=== PATIENT | male | born 1965 | race Caucasian/White ===

== ENCOUNTER 2025-04-21 09:12 | Emergency (ER) | payer OTHER, SELFPAY ==
[2025-04-21 09:20] VITALS: BP 110/69; PULSE 72; RESP 16; TEMP 36.9; O2SAT 98
--- OUTSIDE RECORDS SUMMARY | 2025-04-21 09:28 | XMS_ITS | Continuity of Care Document ---
Author Organization [facility] Sonya SMITH (Adult Med) Address [address] [place] [address] Care Team Providers Care Pipe Bender Name Role Phone DARLIN DEJESUS Sleep Medicine ZARINA MCHUGH Neurologist ANTOINETTE SANTOS Primary Care Provider Unavailabl e Assessment No assessment recorded. Plan of Treatment Reminders Order Date Submit Date Provider Last Modified By Organization Details Last Modified Time Details Appointments ANY 15 2024 03:15P M Zarina Carrillo MD Not available Not available Not available ANY 2025 01:00P OMID ROPER Not available Not available Not available ANY 15 2025 03:45P M Amos Jones MD Not available Not available Not available ANY 15 2025 03:00P OMID ROPER Not available Not available Not available Lab None recorded. Referral None recorded. Procedures None recorded. Surgeries None recorded. Imaging None recorded. Medication Orders ciproflox acin 0.3 %-dexamet hasone 0.1 % ear drops,rajiv pension 2024 025 [facility] [id number], [address], [place], [id number], 03/24/2025 16:32:33 Patient TargetsNo targets recorded. Patient InstructionsNo instructions recorded. Reason for Referral None Reported. Results Created Date Observation Date Name Description Value Unit Range Abnormal Flag Note LastModifiedBy Organization Detail LastModifiedTime 04/17/2004/17/2025 elect roclotus diogr am No observ ation record ed. FELICIA In-Office Order Internal Use Only DO Not Attach Compendium DO Not Attach Compendium, Do Not Delete/merge, [id number] 04/20/2025 08:50:48 04/17/20 elect rocar diogr am No observ ation record ed. [email or web address] Not Available 2024 13:45:17 Result Notes None recorded. Problems Name Problem SNOMED Code Status Onset Date Resolution Date Notes Provider Name and Address Organization Details Recorded Time Upper respirat ory infectio n 45467366 Completed 07/25/2016 James Muniz MD Attn: Accounting, [address] [place], [address], [facility] 7 17:30:21 Hemorrho ids 54935107 Completed 09/24/2018 James Muniz MD Attn: Accounting, [address] [place], [address], [facility] - [facility] 9 15:11:06 Morbid obesity 360561675 Completed 07/25/2016 James Muniz MD Attn: Accounting, [address] [place], [address], [facility] - [facility] 3 16:21:11 Fatigue 62704171 Completed 09/24/2018 James Muniz MD Attn: Accounting, [address] [place], [address], [place] [facility] 9 15:10:58 Sleep apnea 61413972 Completed 09/24/2018 James Muniz MD Attn: Accounting, [address] [place], [address], [place] [facility] 9 15:11:01 Tobacco user 686141385 Completed 07/25/2016 James Muniz MD Attn: Accounting, [address] [place], [address], [place] 03/28/201 7 17:30:18 [facility]ia l hyperten tiera 59332481 Active Gala Lockhart MA null, [place] - [facility] 0 14:16:45 Overweig ht 471768120 Completed 201609/24/2018 James Muniz MD Attn: Accounting, [address] [place], [address], [place] [facility] 9 15:10:55 Tobacco dependen ce syndrome 87303542 Active 2016 Gala Lockhart [place], [place] [facility] 0 14:16:45 Posterio r rhinorrh ea 48310291 Active 2017 Gala Lockhart [place], [place] [facility] 0 14:16:45 Body mass index 30+ - obesity 370748665 Active 2017 Gala Lockhart [place], [place] [facility] 0 14:16:45 Sleep pattern disturba nce 63340407 Completed 201809/24/2018 James Muniz MD Attn: Accounting, [address] [place], [address], [place] [facility] 9 15:10:39 Obstruct sydni sleep apnea syndrome 86637735 Active 2018 Gala Lockhart [place], [place] [facility] 0 14:16:45 Hypercho lesterol emia 30713994 Active 2018 Gala Lockhart [place] [facility] 0 14:16:45 Gastroes ophageal reflux disease without esophagi tis 581056182 Active 2019 James Muniz MD Attn: Accounting, [address] [place], [address], [place] [facility] 0 09:23:30 Seasonal allergic rhinitis 317704977 Active 2019 James Muniz MD Attn: Accounting, [address] [place], [address], [place] [facility] 0 09:44:24 Anal warts 411614408 Active 2021 James Muniz MD Attn: Accounting, [address] [place], [place], [address] [place] [address], [facility] - [facility] 2 16:55:40 Obesity 093652917 Active 2021 James Muniz MD Attn: Accounting, [address] [place], [place], [address] [place] [address], [facility] - [facility] 2 14:18:41 Pure hypercho lesterol emia 353826260 Active 2021 James Muniz MD Attn: Accounting, [address] [place], [place], [address] [place] [address], [facility] 2 10:07:02 Alcohol dependen ce 62477466 Active 2021 James Muniz MD Attn: Accounting, [address] [place], [place], [address] [place] [address], [facility] 2 10:31:31 Right hemipare sis 697839771 Active 2021 Jamse Muniz MD Attn: Accounting, [address] [place], [place], [address] [place] [address], [facility] - [facility] 2 10:34:51 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 736889609 Active 2021 James Muniz MD Attn: Accounting, [address] [place], [place], [address] [place] [address], [place] [facility] 2 10:35:04 Osteoart hritis of right hip joint 01819668940 9107 Active 2022 James Muniz MD Attn: Accounting, [address] [place], [place], [address] [place] [address], [place] [facility] 3 16:04:14 Paresis of right lower limb 21123049762 452021 Active 2022 James Muniz MD Attn: Accounting, [address] [facility], [place], [address], [place] [facility] 3 16:13:30 Morbid obesity 729423030 Active 2022 James Muniz MD Attn: Accounting, [address] [facility], [place], [address], [place] [facility] 3 16:21:11 Sinusiti s 21893310 Active 2024 OMID RAYA Attn: Accounting, [address] [facility], [place], [address], [place] [facility] 5 16:55:03 Problem Notes None recorded. Medical Equipment None Reported. Allergies Allergen ID Allergen Name Allergen Category Reaction Reaction Severity Criticality Documentation Date Start Date Code Code System Note Provider Name and Address Organization Details Recorded Time 156237 No known allergy (situatio n) Not available Not available Not available Not available 06/21/2023 [id number] SNOMED Avni Muniz MD Attn: Accountin g,[address] [facility], [place], [address], [place] [facility] 4 17:05:04 No known drug allergies Medications Name Sig Start Date Stop Date Status Note LastModified by Organization Details LastModified Time amoxicill in 500 mg capsule TAKE ONE CAPSULE BY MOUTH EVERY 8 HOURS UNTIL GONE 08/16 completed Not Available Not Available Not Available atorvasta tin 40 mg tablet TAKE 1 TABLET BY MOUTH EVERY DAY IN THE EVENING 02/03 completed Not Available Not Available Not Available atorvasta tin 80 mg tablet TAKE 1 TABLET BY MOUTH EVERY DAY AT DINNER active Not Available Not Available No t Available clonidine HCl 0.1 mg tablet Take 1 tablet as needed by oral route, for as needed for systolic BP over 160 or diastoli c BP over 100. 2024 active Not Available Not Available Not Avai lable naproxen 375 mg tablet TAKE 1 TABLET BY MOUTH EVERY DAY WITH A MEAL 08/05 completed Not Available Not Available Not Available Anusol-HC 2.5 % rectal cream with applicato r Insert 1 applicat ion twice a day by rectal route. 2014 active Not Available Not Available Not Avai lable cetirizin e 10 mg tablet Take 1 tablet every day by oral route for 30 days. 04/17 completed Not Available Not Available Not Available lisinopri l 20 mg-hydroc hlorothia zide 12.5 mg tablet TAKE 1 TABLET BY MOUTH EVERY DAY IN THE MORNING 11/09 completed Not Available Not Available Not Available azithromy sandra 250 mg tablet TAKE 2 TABLETS (500 MG) BY ORAL ROUTE ONCE DAILY FOR 1 DAY THEN 1 TABLET (250 MG) BY ORAL ROUTE ONCE DAILY FOR 4 DAYS 09/24 completed Not Available Not Available Not Available aspirin 325 mg tablet Take 1 tablet every day by oral route for 30 days. 11/03 completed Not Available Not Available Not Available tizanidin e 4 mg tablet Take 1 tablet every day by oral route as needed. 08/05 completed Not Available Not Available Not Available metoprolo l succinate ER 50 mg tablet,ex tended release 24 hr TAKE 1 TABLET BY MOUTH EVERY DAY 05/03 completed Not Available Not Available Not Available hydrocodo ne 5 mg-acetam inophen 325 mg tablet TAKE 1 TABLET BY MOUTH EVERY 8 HOURS NEEDED FOR MODERATE TO SEVERE PAIN 08/05 completed Not Available Not Available Not Available lisinopri l 20 mg tablet TAKE 1 TABLET BY MOUTH EVERY DAY 12/17 completed increase d to 40 mg Not Available Not Available Not Available prednison e 20 mg tablet TAKE 1 TABLET BY MOUTH DAILY WITH MEALS X 5 DAYS 08/02 completed Not Available Not Available Not Available metoprolo l succinate ER 100 mg tablet,ex tended release 24 hr TAKE 1 TABLET BY MOUTH EVERY DAY active Not Available Not Available No t Available simethico ne 125 mg capsule Take 1 capsule every 6 hours by oral route as needed for 30 days, for gas pain. 04/17 completed not taking Not Available Not Available Not Available Debrox 6.5 % ear drops INSTILL 5 DROPS INTO AFFECTED EAR(S) BY OTIC ROUTE 2 TIMES PER DAY 01/28 completed Not Available Not Available Not Available metronida zole 500 mg tablet TAKE 1 TABLET BY MOUTH THREE TIMES DAILY 12/01 completed Not Available Not Available Not Available clopidogr el 75 mg tablet TAKE 1 TABLET BY MOUTH EVERY DAY 04/14 completed Not Available Not Available Not Available sulfameth oxazole 800 mg-trimet hoprim 160 mg tablet Take 1 tablet every 12 hours by oral route for 14 days. 03/20 completed Not Available Not Available Not Available aspirin 81 mg tablet,de layed release Take 1 tablet every day by oral route. 2021 active Not Available Not Available Not Avai lable doxycycli ne monohydra te 100 mg tablet Take 1 tablet twice a day by oral route for 10 days. 12/17 completed Not Available Not Available Not Available amoxicill in 500 mg tablet TAKE 1 TABLET BY MOUTH EVERY 8 HOURS UNTIL GONE 03/23 completed Not Available Not Available Not Available amoxicill in 875 mg tablet Take 1 tablet every 12 hours by oral route for 5 days. 01/20 completed Not Available Not Available Not Available famotidin e 20 mg tablet TAKE 1 TABLET BY MOUTH TWICE DAILY 08/05 completed Not Available Not Available Not Available Hydrocort isone (Rectal) 2.5 % cream APPLY TO THE AFFECTED AREA(S) BY TOPICAL ROUTE 2 TIMES PER DAY active Not Available Not Available No t Available benzonata te 100 mg capsule Take 1 capsule 3 times a day by oral route as needed for 10 days. 01/10 completed Not Available Not Available Not Available doxycycli ne monohydra te 100 mg capsule TAKE 1 CAPSULE BY MOUTH TWICE DAILY FOR 7 DAYS 06/20 completed Not Available Not Available Not Available ranitidin e 150 mg tablet Take 1 tablet twice a day by oral route. 07/30 completed contamin ated Not Available Not Available Not Available lisinopri l 10 mg tablet TAKE 1 TABLET BY MOUTH EVERY DAY 08/05 completed Not Available Not Available Not Available naproxen 500 mg tablet,de layed release 05/09 completed Not Available Not Available Not Available indometha sandra 50 mg capsule TAKE 1 CAPSULE BY MOUTH THREE TIMES DAILY FOR UP TO 7 DAYS NEEDED FOR MODERATE TO SEVERE PAIN 06/21 completed Not Available Not Available Not Available triamcino lone acetonide 0.025 % topical ointment APPLY A THIN LAYER TO THE AFFECTED AREA(S) BY TOPICAL ROUTE 2 TIMES PER DAY for 1-2 weeks 04/17 completed Not Available Not Available Not Available folic acid 1 mg tablet Take 1 tablet every day by oral route. 04/17 completed Not Available Not Available Not Available hydrocort isone 2.5 % topical cream active Not Available Not Available Not Available hydroxyzi ne HCl 25 mg tablet TAKE 1 TABLET BY MOUTH EVERY NIGHT AT BEDTIME FOR ITCHING 03/20 completed Not Available Not Available Not Available hydrochlo rothiazid e 25 mg tablet Take 1 tablet every day by oral route for 90 days. 2024 active Not Available Not Available Not Avai lable metoprolo l succinate ER 25 mg tablet,ex tended release 24 hr TAKE 1 TABLET BY MOUTH EVERY DAY 01/05 completed Not Available Not Available Not Available levofloxa sandra 500 mg tablet 06/26 completed Not Available Not Available Not Available levofloxa sandra 750 mg tablet TAKE 1 TABLET BY MOUTH DAILY FOR 10 DAYS 12/01 completed Not Available Not Available Not Available methylpre dnisolone 4 mg tablets in a dose pack FOLLOW PACKAGE DIRECTIO NS 09/24 completed Not Available Not Available Not Available albuterol sulfate HFA 90 mcg/actua tion aerosol inhaler Inhale 2 puffs every 6-8 hours by inhalati on route as needed for 30 days. 2024 active Not Available Not Available Not Avai lable lisinopri l 40 mg tablet TAKE 1 TABLET BY MOUTH EVERY DAY active Not Available Not Available No t Available cefdinir 300 mg capsule TAKE 2 CAPSULES BY MOUTH DAILY FOR 7 DAYS 02/24 completed Not Available Not Available Not Available fluticaso ne propionat e 50 mcg/actua tion nasal spray,arjiv pension SHAKE LIQUID AND USE 2 SPRAYS IN EACH NOSTRIL EVERY DAY NEEDED active Not Available Not Available No t Available loratadin e 10 mg tablet TAKE 1 TABLET BY MOUTH DAILY active Not Available Not Available No t Available naproxen 500 mg tablet TAKE 1 TABLET BY MOUTH TWICE DAILY FOR 10 DAYS 12/01 completed pt is not taking ( 4) Not Available Not Available Not Available amoxicill in 875 mg-potass ium clavulana te 125 mg tablet Take 1 tablet every 12 hours by oral route for 10 days. 03/03 completed Not Available Not Available Not Available nicotine 7 mg/24 hr daily transderm al patch Apply 1 patch every day by transder mal route. 07/30 completed Not Available Not Available Not Available Aspir-Tri n 325 mg tablet,de layed release Take 1 tablet every day by oral route. 06/13 completed OTC per the pt Not Available Not Available Not Available modafinil 100 mg tablet TAKE 1 TABLET BY MOUTH EVERY DAY 02/03 completed Per sleep provider Not Available Not Available Not Available cyclobenz aprine 5 mg tablet Take 1 tablet 3 times a day by oral route as needed for 15 days. 03/25 completed Not Available Not Available Not Available ciproflox acin 0.3 %-dexamet hasone 0.1 % ear drops,rajiv pension SHAKE LIQUID AND INSTILL 4 DROPS TO AFFECTED EAR TWICE DAILY FOR 7 DAYS active Not Available Not Available No t Available topiramat e 50 mg tablet Take 1 tablet twice a day by oral route. 01/28 completed Not Available Not Available Not Available Aspir-81 06/14 completed 1 daily OTC Not Available Not Available Not Available cetirizin e 09/24 completed OTC Not Available Not Available Not Available hydrochlo rothiazid e 12.5 mg tablet TAKE 1 TABLET BY MOUTH EVERY DAY IN THE MORNING 04/17 completed Increase d to 25 mg Not Available Not Available Not Available levocetir izine 5 mg tablet TAKE 1 TABLET BY MOUTH DAILY NEEDED. STOP LORATADI NE. 06/13 completed Not Available Not Available Not Available Neilmed Sinus Rinse Complete with packet Take 1 packet every day by nasal route as needed. 01/28 completed Not Available Not Available Not Available loratadin e 10 mg capsule Take by oral route. 06/26 completed Not Available Not Available Not Available Vitals Date Recorded Body height Body mass index (BMI) Body weight Heart rate Respiratory rate Body temperature Systolic And Diastolic Provider Name and Address Organization Details Last Updated DateTime 5 180.34 cm 39.8 kg/m2 457860. 34 g 61 /min 16 /min 97.2 [degF] 137/77 mm[Hg] Tri Guerra [place] - [facility] 16:23:00 Social History Question Answer Notes LastModified by Organizat ion Details LastModified Time Tobacco Smoking Status Current Some Day Smoker LAYTON Ayala null, [place] - [facility] 09/02/2020 15:01:22 Do You Have An Advance Directive? No Information not available 09/02/2020 Are You Blind Or Do You Have Difficulty Seeing? Yes Glasses Information not available 03/03/2025 What Is Your Level Of Caffeine Consumption? Moderate Information not available 09/02/2020 In The 14 Days Before Symptom Onset, Have You Had Close Contact With A Laboratory-confir med COVID-19 While That Case Was Ill? No Information not available 09/02/2020 In The 14 Days Before Symptom Onset, Have You Had Close Contact With A Person Who Is Under Investigation For COVID-19 While That Person Was Ill? No Information not available 09/02/2020 Have You Been To An Area Known To Be High Risk For COVID-19? No Information not available 09/02/2020 Are You Deaf Or Do You Have Serious Difficulty Hearing? No Some Information not available 03/03/2025 What Type Of Diet Are You Following? REGULAR Information not available 09/02/2020 Are There Any Guns Present In Your Home? No Information not available 09/02/2020 Marital Status Informatio n not available 08/31/2014 What Was The Date Of Your Most Recent Tobacco Screening? 04/17/2025 Information not available 04/17/2025 How Many Children Do You Have? 2 Information not available 09/25/2023 Do You Have Any Pets? Yes [email or web address] Information not available 02/24/2025 What Is Your Relationship Status? Information not available 09/02/2020 Do You Use Your Seat Belt Or Car Seat Routinely? Yes Information not available 09/02/2020 Do You Have Smoke And Carbon Monoxide Detectors In Your Home? Yes Information not available 09/02/2020 At What Age Did You Start Smoking Tobacco? 16 [email or web address] Information not available 01/03/2024 How Much Tobacco Do You Smoke? 0.25 PPD etodaroma Information not available 02/08/2023 Do You Use Sunscreen Routinely? No Information not available 09/02/2020 Has Tobacco Cessation Counseling Been Provided? Yes ssuthan Information not available 09/24/2018 On What Date Was Tobacco Cessation Counseling Provided? 04/17/2025 Information not available 04/17/2025 How Many Years Have You Smoked Tobacco? 30 Information not available 05/04/2014 Sex: Male Functional Status Question Answer Note LastModified by Organizat ion Details LastModified Time Do you use any illicit or recreational drugs? No Information not available 09/02/2020 Do you or have you ever used any other forms of tobacco or nicotine? No [email or web address] Information not available 11/30/2021 What is your level of alcohol consumption? None Information not available 08/31/2014 Do you or have you ever used smokeless tobacco? Never used smokeless tobacco Information not available 01/06/2020 Are you currently employed? Yes Information not available 09/02/2020 Are you able to care for yourself independently? 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 Never used electronic cigarettes Information not available 01/06/2020 What is your exercise level? Occasional Information not available 09/02/2020 Mental Status Question Answer Note LastModified by Organizat ion Details LastModified Time Do you feel stressed (tense, restless, nervous, or anxious, or unable to sleep at night)? [id number] at work Information not available 09/02/2020 Family History Relationship Description Onset Age of this Age Resolved Age Notes LastModified by Organization Details LastModified Time Mother Asthma Not available 12/22/2015 16:53:54 Mother Hypertensive disorder Not available 2015 16:53:54 Father Hypertensive disorder Not available 2015 16:53:54 Father Heart disease Not available 2015 16:53:54 Brother Hypertensive disorder Not available 2015 16:53:54 Notes:no new 02/08/23, 08/05/ 4, 09/25/23, 10/10/23, 10/16/23, 01/03/24, 01/21/24, 02/18/24, 04/14/24 Medical History Condition Response High Blood Pressure Y Asthma Y Allergies Y Immunizations Vaccine Type Date Status Note Provider Nam e and Address Organization Details Recorded Time SARS-COV-2 (COVID-19) vaccine, UNSPECIFIED 1 completed Not Available [facility] 05/28/2023 22:35:09 Influenza, split virus, quadrivalent, preservative 8 completed Not Available [facility] 05/17/2019 02:50:29 Influenza, split virus, quadrivalent, preservative 9 completed Not Available [facility] 05/17/2019 02:43:07 Influenza, split virus, quadrivalent, preservative 2 completed James Muniz MD Attn: Accounting[address] [place], [address], [facility] 04/17/2022 15:32:00 Tdap 4 completed [facility] 08/06/2023 17:05:13 Past Encounters Encounter ID Performer Location Encounter Start Date Encounter Closed Date Diagnosis/Indication Diagnosis SNOMED-CT Code Diagnosis ICD10 Code Diagnosis IMO Codes Diagnosis Note [id number] MD Sonya Lance (Adult Med) [address] [place] [address] 02/24/2025 15:54:48 02/25/2025 13:30:58 Acute left otitis media 105428112 H66.92 [id number] follow up in a month [id number] MD Sonya Eddy (Adult Med) [address] [place] [address] 03/03/2025 15:55:32 03/05/2025 12:06:34 Essential hypertension 91778316 I10 -Controlle d-BP today in clinic: 139/84mmHg (Goal <130/80)-C ontinue current therapy: Metoprolol ER 100mg daily, Lisinopril 40mg daily, hydrochlor othiazide 12.5mg daily-Kenney es chest pain, shortness of breath, headaches, blurred vision, or heart palpitatio ns-Patient to call if BP remains >140/90, or if BP drops <110/70mmH g.-Trend renal function-R ecommended DASH diet-Discu ssed importance of regular exercise and/or physical activity inthe control of blood pressure.- Discussed low sodium diet w/ <2 g daily, avoidance of caffeine, appropriat e sleep hygiene and quality with >6 hours of uninterrup carmen sleep.- Plan to follow up in 6 month Low back pain 739676928 M54.50 935598 -Denies having any acute trauma-Den ies any loss of control of bowels or bladder. Denies any numbness or tingling.- spasticity noted on exam on right lower back-Spina l x ray declined-P atient agreeable to trial of cyclobenza carmen 5mg TID PRN and lidocaine patches PRN, and diclofenac gel PRN-Patien t to follow up in clinic if symptoms worsen or do not improve-ER precaution s advised-Ca re instructio ns provided. Intracranial aneurysm 12 4753911 I67.1 [id number] -Carotid CTA (01/03/24): no carotid or vertebral stenosis-I ntracrania l CTA (01/03/24): No large vessel occlusion. 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 New referral placed.-ER precaution s advised [id number] MD Sonya Lance (Adult Med) [address] [place] [address] 03/24/2025 16:01:12 03/25/2025 12:09:52 Otitis externa 1932020 H60.8X2 [id number] keep ear dry Health Concerns Section Related Observation LastModified by Organization Detai ls LastModified Time None Recorded Concern Status LastModified by Organization Details LastModified Time None Recorded Payers Encounter Date Sequence Insurance Name Policy Number Policy Johns Covered Member ID Johns Member ID Guarantor Name 03/24/2025 2 *SELF PAY* Sirena Valenzuela 03/24/2025 1 [facility] EXCH[facility] PLAN [place] [id number] Ramon Valenzuela [id number] Ramon Valenzuela Notes Date Note Type Note Provider Name and Address Organization Details Recorded Time 03/24/2025 text/html ROS as noted in the HPI Pt complaining of blockage of his left ear with drainage. He has been on antibiotics without relief Zarina Carrillo MD Attn: Accounting[address] [facility], [place], [address], [facility] 03/24/2025 16:32:46
--- OUTSIDE RECORDS SUMMARY | 2025-04-21 09:28 | XMS_ITS | Continuity of Care Document ---
Author Organization [facility] ([facility]) Address [address] [place] [address] Care Team Providers Care Shield Operator Name Role Phone DARLIN DEJESUS Sleep Medicine [...] None recorded. Imaging None recorded. Medication Orders amoxicill in 875 mg-potass ium clavulana te 125 mg tablet 2024 025 [id number], [address] [place], [place], [phone], 03/03/2025 16:25:34 fluticaso ne propionat e 50 mcg/actua tion nasal spray,rajiv pension 2024 025 [id number], [address] [place], [place], [phone], 02/24/2025 16:13:57 Patient TargetsNo targets recorded. Patient InstructionsNo instructions recorded. Reason for Referral None Reported. Results Created Date Observation Date Name Description Value Unit Range Abnormal Flag Note LastModifiedBy Organization Detail LastModifiedTime 04/17/2004/17/2025 elect rocar diogr am No observ ation record ed. FELICIA In-Office Order Internal Use Only DO Not Attach Compendium DO Not Attach Compendium, Do Not Delete/merge, [id number] 04/20/2025 08:50:48 04/17/20 elect rocar diogr am No observ ation record ed. [email or web address] Not Available 2024 13:45:17 Result Notes None recorded. Problems Name Problem SNOMED Code Status Onset Date Resolution Date Notes Provider Name and Address Organization Details Recorded Time Upper respirat ory infectio n 42076818 Completed 07/25/2016 James Muniz MD Attn: Accounting, [address] [place], [address], [facility] - [facility] 7 17:30:21 Hemorrho ids 47727488 Completed 09/24/2018 James Muniz MD Attn: Accounting, [address] [place], [address], [facility] - [facility] 9 15:11:06 Morbid obesity 323555085 Completed 07/25/2016 James Muniz MD Attn: Accounting, [address] [place], [address], [place] - [facility] 3 16:21:11 Fatigue 50958765 Completed 09/24/2018 James Muniz MD Attn: Accounting, [address] [place], [address], [facility] - [facility] 9 15:10:58 Sleep apnea 52528231 Completed 09/24/2018 James Muniz MD Attn: Accounting, [address] [place], [address], [place] - [facility] 9 15:11:01 Tobacco user 443390589 Completed 07/25/2016 James Muniz MD Attn: Accounting, [address] [place], [address], [place] [facility] 7 17:30:18 [facility] l hyperten tiera 39872531 Active Gala Lockhart [place] null, [place] [facility] 0 14:16:45 [place] ht 544128077 Completed 201609/24/2018 James Muniz MD Attn: Accounting, [address] [place], [address], [place] [facility] 9 15:10:55 Tobacco dependen ce syndrome 80499750 Active 2016 Gala Lockhart [place], [place] [facility] 0 14:16:45 Posterio r rhinorrh ea 54449666 Active 2017 Gala Lockhart [place] [facility] 0 14:16:45 Body mass index 30+ - obesity 242720662 Active 2017 Gala Lockhart [place] [facility] 0 14:16:45 Sleep pattern disturba nce 73746885 Completed 201809/24/2018 James Muniz MD Attn: Accounting, [address] [place], [address], [place] [facility] 9 15:10:39 Obstruct sydni sleep apnea syndrome 07210815 Active 2018 Gala Lockhart [place] [facility] 0 14:16:45 Hypercho lesterol emia 71196739 Active 2018 Gala Lockhart [place] [facility] 0 14:16:45 Gastroes ophageal reflux disease without esophagi tis 833553704 Active 2019 James Muniz MD Attn: Accounting, [address] [place], [address], [place] [facility] 0 09:23:30 Seasonal allergic rhinitis 827787499 Active 2019 James Muniz MD Attn: Accounting, [address] [place], [place], [address] [place] [address], [place] [facility] 0 09:44:24 Anal warts 497626961 Active 2021 James Muniz MD Attn: Accounting, [address] [place], [place], [address] [place] [address], [place] [facility] 2 16:55:40 Obesity 236603970 Active 2021 James Muniz MD Attn: Accounting, [address] [place], [place], [address] [place] [address], [place] [facility] 2 14:18:41 Pure hypercho lesterol emia 411471136 Active 2021 James Muniz MD Attn: Accounting, [address] [place], [place], [address] [place] [address], [place] [facility] 2 10:07:02 Alcohol dependen ce 76873734 Active 2021 James Muniz MD Attn: Accounting, [address] [place], [place], [address] [place] [address], [place] [facility] 2 10:31:31 Right hemipare sis 471581379 Active 2021 James Muniz MD Attn: Accounting, [address] [place], [place], [address] [place] [address], [place] [facility] 2 10:34:51 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 447267578 Active 2021 James Muniz MD Attn: Accounting, [address] [place], [place], [address] [place] [address], [place] [facility] 2 10:35:04 Osteoart hritis of right hip joint 57752669730 9107 Active 2022 James Muniz MD Attn: Accounting, [address] [facility], [place], [address], [place] [facility] 3 16:04:14 Paresis of right lower limb 84017063176 175110 Active 2022 James Muniz MD Attn: Accounting, [address] [facility], [place], [address], [place] [facility] 3 16:13:30 Morbid obesity 999587452 Active 2022 James Muniz MD Attn: Accounting, [address] [facility], [place], [address], [place] [facility] 3 16:21:11 Sinusiti s 84998959 Active 2024 OMID RAYA Attn: Accounting, [address] [place], [address], [place] - [facility] 5 16:55:03 Problem Notes None recorded. Medical Equipment None Reported. Allergies Allergen ID Allergen Name Allergen Category Reaction Reaction Severity Criticality Documentation Date Start Date Code Code System Note Provider Name and Address Organization Details Recorded Time 655407 No known allergy (situatio n) Not available Not available Not available Not available 06/21/2023 23279 6003 SNOMED Avni Muniz MD Attn: Accountin g,[address] [place], [address], [place] - [facility] 4 17:05:04 No [...] ne propionat e 50 mcg/actua tion nasal spray,rajiv pension SHAKE LIQUID AND USE 2 SPRAYS [...] height Body mass index (BMI) Body weight Respiratory rate Body temperature Heart rate Systolic And Diastolic Provider Name and Address Organization Details Last Updated DateTime 5 180.34 cm 39.7 kg/m2 957536. 31 g 16 /min 97.6 [degF] 61 /min 150/85 mm[Hg] Santiago Romero [facility] 5 16:02:53 Social History Question Answer Notes LastModified by Lobsterat ion Details LastModified Time Tobacco Smoking Status Current Some Day Smoker LAYTON Ayala, [facility] 09/02/2020 15:01:22 Do You Have An Advance [...] not available 09/02/2020 What is your occupation? [employer] Information not available 01/21/2024 Do you or have you ever used e-cigarettes or vape? Never used electronic cigarettes Information not available 01/06/2020 What is your exercise level? Occasional Information not available 09/02/2020 Mental Status Question Answer Note LastModified by Organizat ion Details LastModified Time Do you feel stressed (tense, restless, nervous, or anxious, or unable to sleep at night)? [id number] at work Information not available 09/02/2020 Family [...] (COVID-19) vaccine, UNSPECIFIED 1 completed Not Available [facility] 05/28/2023 22:35:09 Influenza, split virus, quadrivalent, preservative 8 completed Not Available [facility] 05/17/2019 02:50:29 Influenza, split virus, quadrivalent, preservative 9 completed Not Available [facility] 05/17/2019 02:43:07 Influenza, split virus, quadrivalent, preservative 2 completed James Muniz MD Attn: Accounting,[address] [place], [address], [facility] 04/17/2022 15:32:00 Tdap 4 completed [facility] [place] 08/06/2023 17:05:13 Past Encounters Encounter ID Performer Location Encounter Start Date Encounter Closed Date Diagnosis/Indication Diagnosis SNOMED-CT Code Diagnosis ICD10 Code Diagnosis IMO Codes Diagnosis Note [id number] Zarina Carrillo MD [facility] (Adult Med) [address] [place] [address] 02/24/2025 15:54:48 02/25/2025 13:30:58 Acute left otitis media 413093058 H66.92 [id number] follow up in a month Health Concerns Section Related Observation LastModified by Organization Detai ls LastModified Time None Recorded Concern Status LastModified by Organization Details LastModified Time None Recorded Payers Encounter Date Sequence Insurance Name Policy Number Policy Johns Covered Member ID Johns Member ID Guarantor Name 02/24/2025 2 *SELF PAY* Sirena Valenzuela 02/24/2025 1 [facility] [place] ILONEX Ramon Valenzuela [id number] Ramon Valenzuela Notes Date Note Type Note Provider Name and Address Organization Details Recorded Time 02/24/2025 text/html ROS as noted in the HPI Pt complaining of blockage of his left ear for the last month. He has been treated with antibiotics without relief. He has nasal congestion as well. Zarina Carrillo MD Attn: Accounting[address] [place], [address], [facility] - [facility] 02/24/2025 16:14:04
--- OUTSIDE RECORDS SUMMARY | 2025-04-21 09:29 | XMS_ITS | Encounter Summary ---
Author Organization [facility] Address [address] [place] [address] Care Team Providers Care Sterilisation Technician Name Role Phone Bernadine Anton Primary Care Provider [phone] Reason for Referral * Consultation (Routine) - Closed Specialty Diagnoses / Procedures Referred By Contac t Referred To Contact Neurological Surgery Diagnoses Cerebral aneurysm, nonruptured (HCC) Unknown, Provider [facility] - Neurosurgery [address] [place] [address] Phone: tel: fax: Referral ID Status Reason Start Date Expiration Date V isits Requested Visits Authorized [id number] Closed Specialty Services Required 02/25/2024 02/24/2025 1 1 Encounter Details Date Type Department Care Team (Late st Contact Info) Description 02/25/2024 Transcribe Orders [facility] - Centralized Scheduling [address] [place] [phone] Bernadine Anton [address] [address] Cerebral aneurysm, nonruptured Social History Tobacco Use Types Packs/Day Years Used Date Smoking Tobacco: Never Assessed Sex and Gender Information Value Date Recorded Sex Assigned at Not on file Legal Sex Male 7:52 AM CDT Gender Identity Not on file Sexual Orientation Not on file documented as of this encounter Plan of Treatment Scheduled Referrals Name Type Priority Associated Diagnoses Order Schedule AMB REFERRAL TO NEUROSURGERY Outpatient Referral Routine Cerebral aneurysm, nonruptured 1 Occurrences starting 02/25/2024 until 02/24/2025 documented as of this encounter Visit Diagnoses Diagnosis Cerebral aneurysm, nonruptured (HCC)- Primary Cerebral aneurysm, nonruptured documented in this encounter Care Teams Sterilisation Technician Relationship Specialty Start Date End Date AntonLuis EBernadine 2 [facility] [address] [phone] PCP - General 02/26/24 documented as of this encounter
--- OUTSIDE RECORDS SUMMARY | 2025-04-21 09:29 | XMS_ITS | Clinical Summary ---
Author Organization [facility] Address [address] [place] [address] Phone Care Team Providers Care Director [facility] Name Role Phone ErinRamon DPM Unavailable [phone] Liz Landaverde APRN, COW TESTER Unavailable + [phone] Darío Bangura MD Unavailable [phone] Bernadine Anton APRN, M[employer]ITIONS HANDLER Primary Care Provider Allergies No known active allergies Medications metoprolol Succinate (TOPROL-XL) 100 MG TABLET SR 24 HR Take 100 mg by mouth daily. 2 Active atorvastatin (LIPITOR) 80 MG Tablet Take 80 mg by mouth daily. 2 Active aspirin 81 MG Chewable Tablet Take 81 mg by mouth daily. Active albuterol 108 (90 Base) MCG/ACT Aerosol Solution take 2 Puffs by inhalation every 6 hours as needed for Wheezing. 4 Active fluticasone (FLONASE) 50 MCG/ACT Suspension 1-2 Sprays by Nasal route daily. Uses in both nostrils 4 Active hydroCHLOROthia zide 12.5 MG Tablet Take 12.5 mg by mouth every morning. 5 Active lisinopril (PRINIVIL, ZESTRIL) 40 MG Tablet Take 40 mg by mouth daily. 5 Active loratadine (CLARITIN) 10 MG Tablet Take 1 Tablet by mouth daily. Active ondansetron (ZOFRAN-ODT) 4 MG TABLET DISPERSIBLE Take 1 Tablet by mouth every 6 hours as needed for Nausea - 1st line. 10 Tablet 5 Active polyethylene glycol (GLYCOLAX, MIRALAX) 17 g PackIndications :Constipation Take 1 Packet by mouth 2 times daily as needed for Constipation - 1st line. Dissolve in 4-8 oz of liquid. Indications: Constipation 90 Packet Active metroNIDAZOLE (FLAGYL) 500 MG Tablet Take 1 Tablet by mouth 3 times daily. 30 Tablet 5 Active Active Problems Problem Noted Date Diagnosed Date Acute diverticulitis 08/06/2024 History of CVA (cerebrovascular accident) 2024 History of cerebral aneurysm 08/06/2024 History of seizures 08/06/2024 Tobacco dependence 08/06/2024 Ischemic cerebrovascular accident (CVA) 01/23/20 22 Sleep deprivation 01/31/2019 Dizziness 01/31/2019 Drug allergy 01/31/2019 TIA (transient ischemic attack) 01/31/2019 Seizure disorder 01/31/2019 Hypertension 01/30/2019 Body mass index (bmi) 38.0-38.9, adult 9 Equinus contracture of left ankle 11/21/2016 Other enthesopathy of left foot 11/21/2016 Plantar fasciitis, left 11/21/2016 Encounters Date Type Department Care Team Description 04/07/2025 1:17 PM [facility] - 04/07/2025 6:03 PM [facility] Emergency [facility] Emergency [address] [place] [address] Kathrine Donald MD Dizziness Discharge Disposition: Discharged to home or Selfcare 04/07/2025 Travel from Last 3 Months Immunizations Immunization Administration Dates Next Due Influenza Vaccine, Quadrivalent, PF 01/31/2019() Family History Medical History Relation Name Comments No Known Problems Brother Heart Attack Father Hypertension Mother Obstructive Sleep Apnea Mother Multiple Sclerosis Sister 1 No Known Problems Sister 2 No Known Problems Sister 3 No Known Problems Son 1 No Known Problems Son 2 Relation Name Status Comments Brother Alive Father Mother Alive Sister 1 Alive Sister 2 Alive Sister 3 Alive Son 1 Alive Son 2 Alive Social History Tobacco Use Types Packs/Day Years Used Date Smoking Tobacco: Every Day Cigarettes 1 43 Started: 1982 Smokeless Tobacco: Never Alcohol Use Standard Drinks/Week Comments Yes 0 (1 standard drink = 0.6 oz pure alcohol) Used to be heavy drinker, now drinks on the weekends [facility] Utilities Answer Date Recorded In the past 12 months has th e electric, gas, oil, or water company threatened to shut off services in your home? No 08/06/2024 Hunger Vital Sign Answer Date Recorded Within the past 12 months, y ou worried that your food would run out before you got the money to buy more. Never true 08/07/19 25 Within the past 12 months, t he food you bought just didn't last and you didn't have money to get more. Never true 08/06/2024 PRAPARE - Transportation Answer Date Re corded In the past 12 months, has l ack of transportation kept you from medical appointments or from getting medications? No 12/2024 In the past 12 months, has l ack of transportation kept you from meetings, work, or from getting things needed for daily living? No 08/06/2024 Housing Stability Vital Sign Answer Ulysses e Recorded In the last 12 months, was t here a time when you were not able to pay the mortgage or rent on time? No 08/06/2024 In the past 12 months, how m any times have you moved where you were living? 0 08/06/2024 At any time in the past 12 m [facility], were you homeless or living in a skilled nursing (including now)? No 08/06/2024 Sexually Active Control Partners Comments Yes Female Sex and Gender Information Value Date Recorded Sex Assigned at Not on file Legal Sex Male 12:32 AM CDT Gender Identity Not on file Sexual Orientation Not on file Last Filed Vital Signs Vital Sign Reading Time Taken Comments Blood Pressure 159/82 04/07/2025 5:58 PM [facility] Pulse 59 04/07/2025 5:58 PM [facility] Temperature 36.3 C (97.3 F) 04/07/2025 12:47 PM [facility] Respiratory Rate 12 04/07/2025 6:00 PM [facility] Oxygen Saturation 96% 04/07/2025 5:58 PM [facility] Inhaled Oxygen Concentration - - Weight 129.5 kg (285 lb 7.9 oz) 025 12:47 PM [facility] Height 182.9 cm (6') 04/07/2025 12:47 PM [facility] Body Mass Index 38.72 04/07/2025 12:47 PM [facility] Plan of Treatment Health Maintenance Due Date Last Done Comments Hepatitis C Virus (HCV) Screening 1965 Hepatitis B Immunization (1 of 3 - 19+ 3-dose series) 09/10/1986 Pneumococcal Immunization (5 0+ years) (1 of 2 - PCV) 09/10/1986 Cologuard 09/10/2012 Colonoscopy 09/10/2012 Lung Cancer Screening 09/10/2017 Zoster Immunization (1 of 2) 09/10/2017 Colorectal Cancer Screening 01/24/2023 Immunochemical Fecal Occult Blood 01/24/2023 01/24/2022 Influenza Immunization (#1) 12/29/202403/30, 02/04/2019, 03/12/2018 SARS-COV-2 Immunization (2 - season) 2024 09/03/2020 Respiratory Syncytial Virus (RSV) Immunization (Adult) (1 - 1-dose 75+ series) 09/10/2042 PSA Discussion Completed 11/27/2022 DTaP/Tdap/Td Immunization Discontinued 08/06/2023 TdaP Immunization Completed 08/06/2023 Human Papillomavirus (HPV) Immunization (No Doses Required) Completed Meningococcal Immunization (ACWY) Aged Out No longer eligible based on patient's age to complete this topic Rotavirus Immunization Aged Out No lo nger eligible based on patient's age to complete this topic Procedures Procedure Name Priority Date/Time Associated Diagnosis Comments CT HEAD OR BRAIN WO CONTRAST Stat with Interpretation 04/07/2025 2:55 PM [facility] URINALYSIS REFLEX IF INDICATED BY ABNORMAL RESULTS STAT 04/07/2025 1:29 PM [facility] GOLD TOP TUBE STAT 04/07/2025 12:58 PM [facility] BLUE TOP TUBE STAT 04/07/2025 12:58 PM [facility] CBC WITH AUTO DIFFERENTIAL STAT 04/07/2025 12:58 PM [facility] EXTRA TUBES STAT 04/07/2025 12:58 PM [facility] TROPONIN I, HIGH SENSITIVITY (HSTRP) STAT 04/07/2025 12:58 PM [facility] CMP (COMPREHENSIVE METABOLIC PANEL) STAT 04/07/2025 12:58 PM [facility] COMPLETE BLOOD COUNT (CBC) WITH DIFF STAT 04/07/2025 12:58 PM [facility] EKG 12 LEAD STAT 04/07/2025 12:51 PM [facility] EKG SCAN 04/07/2025 12:00 AM [facility] PSA SCREEN 11/27/2022 12:00 AM CDT STOOL, OCCULT BLOOD, DIAGNOSTIC, VIA GUAIAC Routine 01/24/2022 8:05 AM CDT from Last 3 Months or Most Recently Relevant to Health Maintenance Results * CT HEAD OR BRAIN WO CONTRAST (04/07/2025 2:55 PM [facility]) Anatomical Region Laterality Modality Head N/A Computed Tomogra phy 04/07/2025 2:55 PM [facility] Impressions 04/07/2025 3:05 PM [facility] IMPRESSION: 1. No acute intracranial abnormality. Narrative 04/07/2025 3:05 PM [facility] DICTATING PHYSICIAN: Stevie Bahena M.D. - [facility] EXAM: CT HEAD OR BRAIN WO CONTRAST 04/07/2025 2:55 PM HISTORY: Dizziness, history of hypertension. COMPARISON: January 10, 2024 TECHNIQUE: Radiation dose reduction techniques were employed. CTDIvol: 59.4 mGy. DLP: 1274 mGy-cm. FINDINGS: Brain: Hemorrhage: None. Mass: None, although small lesions may not be seen due to lack of IV contrast. Ischemia: No CT evidence of acute ischemia, although MRI is more sensitive and specific, particularly in the acute setting. Garcia & White Matter: Unremarkable. Ventricles & Extraaxial Spaces: Unremarkable Vessels: Few calcifications in the parasellar carotid arteries. Paranasal Sinuses & Mastoids: Well-aerated, no fluid. Calvarium & Skull Base: Unremarkable. No fracture. Orbits: Visualized portions unremarkable Scalp & Soft Tissues: Unremarkable. Procedure Note Stevie Bahena MD - 04/07/2025 DICTATING PHYSICIAN: Stevie Bahena M.D. - [facility] EXAM: CT HEAD OR BRAIN WO CONTRAST 04/07/2025 2:55 PM HISTORY: Dizziness, history of hypertension. COMPARISON: January 10, 2024 TECHNIQUE: Radiation dose reduction techniques were employed. CTDIvol:59.4 mGy. DLP: 1274 mGy-cm. FINDINGS: Brain: Hemorrhage: None. Mass: None, although small lesions may not be seen due to lack of IVcontrast. Ischemia: No CT evidence of acute ischemia, although MRI is moresensitive and specific, particularly in the acute setting. Garcia & White Matter: Unremarkable. Ventricles & Extraaxial Spaces: Unremarkable Vessels: Few calcifications in the parasellar carotid arteries. Paranasal Sinuses & Mastoids: Well-aerated, no fluid. Calvarium & Skull Base: Unremarkable. No fracture. Orbits: Visualized portions unremarkable Scalp & Soft Tissues: Unremarkable. IMPRESSION: 1. No acute intracranial abnormality. Kathrine Donald MD IMG CT ORDERABLES Final Resul t * (ABNORMAL) URINALYSIS REFLEX IF INDICATED BY ABNORMAL RESULTS (04/07/2025 1:29 PM [facility]) SPECIFIC GRAVITY 1.005 1.003 - 1.030 04/07/2025 2:08 PM [facility] URINE PH 7.0 5.0 - 9.0 04/07/2025 2:08 PM [facility] [employer] WBC ESTERASE Negative Negative 04/07/2025 2:08 PM [facility] [employer] NITRITE Negative Negative 04/07/2025 2:08 PM [facility] [facility] PROTEIN, RANDOM URINE Negative Negative 04/07/2025 2:08 PM [facility] [employer] URINE GLUCOSE, QUAL Negative Negative 04/07/2025 2:08 PM [facility] [employer] URINE KETONES Negative Negative 04/07/2025 2:08 PM [facility] UROBILINOGEN Normal Normal mg/dL 04/07/2025 2:08 PM [facility] URINE BLOOD 25 /uL(A) Negative kandace/ul 04/07/2025 2:08 PM [facility] URINALYSIS COLOR Yellow 04/07/20 2:08 PM [facility] URINALYSIS CLARITY Clear 04/07/2025 2:08 PM [facility] WBC (Urine) Negative Negative, 0-5 /hpf 04/07/2025 2:08 PM [facility] URINE RBC'S 0-2 Negative, 0-2 /hpf 04/07/2025 2:08 PM [facility] EPITHELIAL CELLS Negative /lpf 04/07/20 2:08 PM [facility] [employer] BACTERIA, URINE Negative Negative /hpf 04/07/2025 2:08 PM [facility] Urine URINE SPECIMEN OBTAINED BY CLEAN CATCH PROCEDURE / Unknown Non-Phlebotomy Collection / Unknown 04/07/2025 1:29 PM [facility] 04/07/2025 1:33 PM [facility] Kathrine Donald MD URINE ORDERABLES Final Result [facility] [address] [place] [address] * TROPONIN I, HIGH SENSITIVITY (HSTRP) (04/07/2025 12:58 PM [facility]) TROPONIN I, HIGH SENSITIVITY- STILL <2.7 <=35.0 ng/L 04/07/2025 1:36 PM [facility] Comment: High-sensitivity troponin I results are reported in ng/L making the result appear to be 1,000 times higher than the contemporary troponin I value which is reported in ng/ml. Results from Still. Blood Venipuncture / Unknown 04/07/2025 12:58 PM [facility] 04/07/2025 1:10 PM [facility] us Kathrine Donald MD CHEMISTRY ORDERABLES Final Re sult Performing Organization Address City/[facility]/ZIP Co de Phone Number [facility] [address] [place] [address] * Gold Top Tube (04/07/2025 12:58 PM [facility]) Blood No Phlebotomy Charged / Unknown 04/07/2025 12:58 PM [facility] 04/07/2025 1:11 PM [facility] us Kathrine Donald MD CHEMISTRY ORDERABLES Final Re sult Performing Organization Address City/[facility]/ZIP Co de Phone Number [facility] [address] [place] [address] * Blue Top Tube (04/07/2025 12:58 PM [facility] [employer]) Blood No Phlebotomy Charged / Unknown 04/07/2025 12:58 PM [facility] 04/07/2025 1:11 PM [facility] us Kathrine Donald MD HEMATOLOGY ORDERABLES Final R esult Performing Organization Address City/[facility] Co de Phone Number [facility] [address] [place] [address] * (ABNORMAL) CBC with Auto Differential (04/07/2025 12:58 PM [facility]) WBC 8.29 4.00 - 12.00 10(3)/mcL 04/07/2025 1:14 PM [facility] RBC 4.25(L) 4.40 - 5.80 10(6)/mcL 04/07/2025 1:14 PM [facility] HEMOGLOBIN (HGB) 13.5 13.0 - 16.5 g/dL 04/07/2025 1:14 PM [facility] HEMATOCRIT (HCT) 38.6 38.0 - 50.0 % 04/07/2025 1:14 PM [facility] MCV 90.8 82.0 - 96.0 fL 04/07/2025 1:14 PM [facility] MCH 31.8 26.0 - 32.0 pg 04/07/2025 1:14 PM [facility] MCHC 35.0 31.0 - 36.0 g/dL 04/07/2025 1:14 PM [facility] PLATELET COUNT 269 140 - 440 10(3)/mcL 04/07/2025 1:14 PM [facility] RDW 13.3 11.8 - 15.5 % 04/07/2025 1:14 PM [facility] MPV 8.9 8.0 - 12.6 fL 04/07/2025 1:14 PM [facility] NEUTROPHILS 63.5 40.0 - 68.0 % 04/07/2025 1:14 PM [facility] LYMPHOCYTES 25.3 19.0 - 49.0 % 04/07/2025 1:14 PM [facility] MONOCYTES 9.0 3.0 - 13.0 % 04/07/2025 1:14 PM [facility] EOSINOPHILS 1.0 0.0 - 8.0 % 04/07/2025 1:14 PM [facility] BASOPHILS 0.8 0.0 - 1.0 % 04/07/2025 1:14 PM [facility] IMMATURE GRANULOCYTE 0.4 0.0 - 0.4 % 04/07/2025 1:14 PM [facility] ABSOLUTE NEUTROPHILS 5.26 1.40 - 5.30 10(3)/mcL 04/07/2025 1:14 PM [facility] ABSOLUTE LYMPHOCYTES 2.10 0.90 - 3.30 10(3)/mcL 04/07/2025 1:14 PM [facility] ABSOLUTE MONOCYTES 0.75 0.10 - 0.90 10(3)/mcL 04/07/2025 1:14 PM [facility] ABSOLUTE EOSINOPHIL 0.08 0.00 - 0.50 10(3)/mcL 04/07/2025 1:14 PM [facility] ABSOLUTE BASOPHILS 0.07 0.00 - 0.10 10(3)/mcL 04/07/2025 1:14 PM [facility] ABSOLUTE IMMATURE GRANULOCYTE 0.03 0.00 - 0.03 10 (3) mcL. 04/07/2025 1:14 PM [facility] NRBC PER 100 WBC 0 04/07/20 1:14 PM [facility] Blood Venipuncture / Unknown 04/07/2025 12:58 PM [facility] 04/07/2025 1:10 PM [facility] us Kathrine Donald MD HEMATOLOGY ORDERABLES Final R esult [facility] [address] [place] [address] * Comprehensive Metabolic Panel (Cmp) [id number] (04/07/2025 12:58 PM [facility]) SODIUM 137 136 - 145 mmol/L 04/07/2025 1:31 PM [facility] POTASSIUM 4.2 3.5 - 5.1 mmol/L 04/07/2025 1:31 PM [facility] CHLORIDE 103 98 - 107 mmol/L 04/07/2025 1:31 PM [facility] CO2, VENOUS 25 22 - 30 mmol/L 04/07/2025 1:31 PM [facility] ANION GAP 13.2 <18.0 mmol/L 04/07/2025 1:31 PM [facility] GLUCOSE 92 70 - 99 mg/dL 04/07/2025 1:31 PM [facility] BUN 12 8 - 26 mg/dL 04/07/2025 1:31 PM [facility] CREATININE, BLOOD 0.91 0.70 - 1.30 mg/dL 04/07/2025 1:31 PM [facility] BUN/CREATININE RATIO 13 12 - 20 ratio 04/07/2025 1:31 PM [facility] TOTAL PROTEIN 8.0 6.0 - 8.0 g/dL 04/07/2025 1:31 PM [facility] ALBUMIN 4.5 3.5 - 5.0 g/dL 04/07/2025 1:31 PM [facility] A/G RATIO 1.3 1.0 - 2.2 04/07/2025 1:31 PM [facility] CALCIUM 9.1 8.7 - 10.5 mg/dL 04/07/2025 1:31 PM [facility] T BILI 0.5 0.2 - 1.2 mg/dL 04/07/2025 1:31 PM [facility] SGOT (AST) 23 <43 U/L 04/07/2025 1:31 PM [facility] SGPT (ALT) 23 <56 U/L 04/07/2025 1:31 PM [facility] ALKALINE PHOSPHATASE 82 40 - 150 U/L 04/07/2025 1:31 PM [facility] GFR, ESTIMATED >60 >=60 04/07/2025 1:31 PM [facility] Comment: Creatinine Clearance is the preferred criteria for selecting drug dose adjustments in renally impaired patients. The GFR is provided as additional pertinent clinical information. GFR is reported in mL/min/1.73 sq m. Calculation based on the 2020 Chronic Kidney Disease Epidemiology Collaboration (CKD-EPI) equation refit without adjustment for race. GFR, EST. >60 >=60 025 1:31 PM [facility] Comment: Creatinine Clearance is the preferred criteria for selecting drug dose adjustments in renally impaired patients. The GFR is provided as additional pertinent clinical information. GFR is reported in mL/min/1.73 sq m. Calculation based on the 2009 Chronic Kidney Disease Epidemiology Collaboration (CKD-EPI). GFR, EST. NONAFRICAN >60 >=60 04/07/2025 1:31 PM [facility] Comment: Creatinine Clearance is the preferred criteria for selecting drug dose adjustments in renally impaired patients. The GFR is provided as additional pertinent clinical information. GFR is reported in mL/min/1.73 sq m. Calculation based on the 2009 Chronic Kidney Disease Epidemiology Collaboration (CKD-EPI). Blood Venipuncture / Unknown 04/07/2025 12:58 PM [facility] 04/07/2025 1:10 PM [facility] us Kathrine Donald MD CHEMISTRY ORDERABLES Final Re sult Performing Organization Address [facility] Co de Phone Number [facility] [address] [place] [address] * EKG 12 LEAD (04/07/2025 12:51 PM [facility]) Ventricular Rate 66 BPM EXTERNAL EKG Atrial Rate 66 BPM EXTERNAL EKG P-R Interval 124 ms EXTERNAL EKG QRS Duration 90 ms EXTERNAL EKG Q-T Duration 414 ms EXTERNAL EKG QTC CALCULATION 434 ms EXTERNAL EKG R Alden 22 degrees EXTERNAL EKG T Alden -2 degrees EXTERNAL EKG 04/07/2025 12:5 1 PM [facility] Impressions EXTERNAL EKG - 04/08/2025 10:41 PM [facility] Normal sinus rhythm Low voltage QRS T wave abnormality, consider anterior ischemia Abnormal ECG When compared with ECG of 10-JAN-2024 13:31, T wave inversion now evident in Anterior leads Confirmed by Fili Loyola ([id number]) on 04/08/2025 10:41:35 PM Narrative Procedure Note Fili Loyola MD - 04/08/2025 IMPRESSION: Normal sinus rhythm Low voltage QRS T wave abnormality, consider anterior ischemia Abnormal ECG When compared with ECG of 10-JAN-2024 13:31, T wave inversion now evident in Anterior leads Confirmed by Fili Loyola ([id number]) on 04/08/2025 10:41:35 PM us Kathrine Donald MD IMG ECG ORDERABLES Final Resu lt Performing Organization Address City/[facility]/ZIP Co de Phone Number EXTERNAL EKG * EKG SCAN (04/07/2025 12:00 AM [facility]) 04/07/2025 us Provider Scan IMG ECG ORDERABLES Final Result Performing Organization Address City/[facility]/ZIP Co de Phone Number RESULTING AGENCY * PSA SCREEN (11/27/2022 12:00 AM CDT) PSA (PROSTATE SPECIFIC ANTIGEN) 0.4 ng/mL SCAN 11/27/2022 Provider Scan CHEMISTRY ORDERABLES Final Resul t Performing Organization Address [facility] Co de Phone Number SCAN * Stool, Occult Blood, Diagnostic (01/24/2022 8:05 AM CDT) OCCULT BLOOD DIAG Negative Negative 01/24/2022 8:56 AM CDT [facility] Stool STOOL SPECIMEN / Unknown Non-Phlebotomy Collection / Unknown 01/24/2022 8:05 AM CDT 01/24/2022 8:56 AM CDT Mendoza Randall MD BODY FLUIDS & STOOLS ORDERABL ES Final Result Performing Organization Address [facility] Co de Phone Number [facility] [address] [place] [address] from Last 3 Months or Most Recently Relevant to Health Maintenance Insurance [facility] Advance Directives * Full Code (Latest Code Status on File) Date Activated Date Inactivated Comments 08/06/2024 1:10 AM CPR-Full Treatm ent: FULL ARREST: Attempt Resuscitation/CPR wit intubation and mechanical ventilation. PRE-ARREST: Use entire range of life support measures to stabilize the patient. * Full Code Date Activated Date Inactivated Comments 01/22/2022 11:18 PM 01/24/2022 7:53 PM CPR-Full Tr eatment: FULL ARREST: Attempt Resuscitation/CPR wit intubation and mechanical ventilation. PRE-ARREST: Use entire range of life support measures to stabilize the patient. * Full Code Date Activated Date Inactivated Comments 01/30/2019 4:18 PM 01/31/2019 7:34 PM CPR-Full Chaitanya atment: FULL ARREST: Attempt Resuscitation/CPR wit intubation and mechanical ventilation. PRE-ARREST: Use entire range of life support measures to stabilize the patient. Care Teams Director [facility] Relationship Specialty Start Date End Date Bernadine Anton, ONCOLOGY PHYSICIAN, [employer] [address] [place] [address] PCP - General Advanced Practice Nurse 08/08/24 Ramon Khan DPM Consulting Physician Podiatry 11/09/16 Liz Landaverde APRN, COW TESTER [address] [place] [address] Nurse Practitioner Advanced Practice Nurse 02/23/22 Darío Bangura MD [address] [place] [address] Consulting Physician Neurology 04/07/22
--- OUTSIDE RECORDS SUMMARY | 2025-04-21 09:29 | XMS_ITS | Data Portability ---
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 Plan of Treatment Reminders Order Date Submit Date Provider Last Modified By Organization Details Last Modified Time Details Appointments ANY 15 2024 03:15P Juan Carrillo MD Not available Not available Not available ANY 15 2025 01:00P OMID ROPER Not available Not available Not available ANY 15 2025 03:45P M Amos Jones MD Not available Not available Not available ANY 15 2025 03:00P OMID ROPER Not available Not available Not available Lab None recorde d. Referral neurolo gical surgeon referra l 2024 [id number] [email or web address] [facility] - Neurosurgery, [facility], [address], [address], 04/10/2025 08:09:22 Procedures None recorde d. Surgeries None recorde d. Imaging electro cardiog tana 2024 [id number] [email or web address] In-Office Order, Internal Use Only DO Not Attach Compendium DO Not Attach Compendium, Do Not Delete/merge, [id number] 04/17/2025 14:00:08 pharmac ologic nuclear stress test - Pharmac ologic stress test 2024 [facility], [address], [address], [place], [address], 04/17/2025 14:05:37 US, echocar diogram , transth oracic, complet e - Echo with bubble study 2024 [facility], [address], [address], [place], [address], 04/17/2025 14:05:37 Medication Orders clonidi ne HCl 0.1 mg tablet [id number] [address], [place], [id number], 04/17/2025 15:14:02 ciprofl oxacin 0.3 %-dexam ethason e 0.1 % ear drops,s uspensi on 2024 025 [facility] #[id number], [address], [place], [id number], 03/24/2025 16:32:33 cyclobe nzaprin e 5 mg tablet 2024 [facility][id number], [address], [place], [id number], 03/25/2025 05:01:47 amoxici llin 875 mg-pota ssium clavula barbie 125 mg tablet 2024 025 [facility] #74580, [address], [place], [id number], 03/03/2025 16:25:34 flutica sone propion ate 50 mcg/act uation nasal spray,s uspensi on 2024 [facility]67406, [address], [place], [id number], 02/24/2025 16:13:57 Patient TargetsNo targets recorded. Patient Instructions Encounter Date Encounter Id Patient Instructions Last Modified By Organization Details Last Modified Time 03/03/2025 [id number] sciatica: exercises [email or web address] Not available 03/03/2025 16:39:51 low back pain: exercises [email or web address] Not available 03/03/2025 16:39:51 back stretches: exercises [email or web address] Not available 03/03/2025 16:39:51 Plan of care has been discussed with patient including expected therapeutic benefits and potential side effects of prescribed medication and treatments. Patient verbalizes understanding and is in agreement with the plan of care. Patient was instructed to keep all scheduled appointments and contact the clinic for any additional problems. Health Maintenance: - CRC screening (45-75):Negative 06-19-22 - Osteoporosis screening: Due at 65. - Lipid screening (>45 unless additional risk factors): 08/05/24 - HIV : Declined - HepC: Declined -Eye exam: Unknown -Dental Exam: Unknown - Immunizations: - Influenza: Due Fall. - Prevnar 20: Due at 65. - Tdap/Td (f09cpocu): 08/06/23 - Zoster (>60):Due at 60. - COVID-19: 09/03/20 - AAA screening (65-75): Due at 65. 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 Referral for El ectrocardiogram abnormal Referring Physician: [facility], Encounter Date: 04/10/2025 Results Created Date Observation Date Name Description Value Unit Range Abnormal Flag Note LastModifiedBy Organization Detail LastModifiedTime 04/07/20 25 04/07/2025 CBC w/ auto diff WBC, auto, blood 8.29 text: 4.00 - 12.00 10(3)/ mcL Not Available Not Available 04/07/2025 22:08:16 04/07/20 25 04/07/2025 CBC w/ auto diff RBC count, blood 4.25 text: 4.40 - 5.80 10(6)/ mcL low Not Available Not Available 04/07/2025 22:08:16 04/07/20 25 04/07/2025 CBC w/ auto diff hemoglobin (Hb), blood 13.5 g/dL low: 13g/dL high: 16.5g/ dL Not Available Not Available 04/07/2025 22:08:16 04/07/20 25 04/07/2025 CBC w/ auto diff hematocrit, automated count, blood 38.6 % low: 38%hig h: 50% Not Available Not Available 04/07/2025 22:08:16 04/07/20 25 04/07/2025 CBC w/ auto diff MCV, blood 90.8 fL low: 82fLhi gh: 96fL Not Available Not Available 04/07/2025 22:08:16 04/07/20 25 04/07/2025 CBC w/ auto diff MCH, qn, automated (obs) 31.8 pg low: 26pghi gh: 32pg Not Available Not Available 04/07/2025 22:08:16 04/07/20 25 04/07/2025 CBC w/ auto diff MCHC, qn, automated (obs) 35 g/dL low: 31g/dL high: 36g/dL Not Available Not Available 04/07/2025 22:08:16 04/07/20 25 04/07/2025 CBC w/ auto diff platelet count, blood 269 text: 140 - 440 10(3)/ mcL Not Available Not Available 04/07/2025 22:08:16 04/07/20 25 04/07/2025 CBC w/ auto diff erythrocyte distribution width, ratio, automated (obs) 13.3 % low: 11.8%h igh: 15.5% Not Available Not Available 04/07/2025 22:08:16 04/07/20 25 04/07/2025 CBC w/ auto diff platelet mean volume, qn, automated, blood (obs) 8.9 fL low: 8fLhig h: 12.6fL Not Available Not Available 04/07/2025 22:08:16 04/07/20 25 04/07/2025 CBC w/ auto diff neutrophils/ 100 leukocytes, automated, blood (obs) 63.5 % low: 40%hig h: 68% Not Available Not Available 04/07/2025 22:08:16 04/07/20 25 04/07/2025 CBC w/ auto diff lymphocytes/ 100 leukocytes, automated, blood (obs) 25.3 % low: 19%hig h: 49% Not Available Not Available 04/07/2025 22:08:16 04/07/20 25 04/07/2025 CBC w/ auto diff monocytes/10 0 leukocytes, automated, blood (obs) 9 % low: 3%high : 13% Not Available Not Available 04/07/2025 22:08:16 04/07/20 25 04/07/2025 CBC w/ auto diff eosinophils/ 100 leukocytes, automated, blood (obs) 1 % low: 0%high : 8% Not Available Not Available 04/07/2025 22:08:16 04/07/20 25 04/07/2025 CBC w/ auto diff basophils/10 0 leukocytes, automated, blood (obs) 0.8 % low: 0%high : 1% Not Available Not Available 04/07/2025 22:08:16 04/07/20 25 04/07/2025 CBC w/ auto diff immature granulocyte 0.4 % low: 0%high : 0.4% Not Available Not Available 04/07/2025 22:08:16 04/07/20 25 04/07/2025 CBC w/ auto diff neutrophil count, absolute (anc), blood (obs) 5.26 text: 1.40 - 5.30 10(3)/ mcL Not Available Not Available 04/07/2025 22:08:16 04/07/20 25 04/07/2025 CBC w/ auto diff lymphocytes, quantitative , blood, automated count (obs) 2.1 text: 0.90 - 3.30 10(3)/ mcL Not Available Not Available 04/07/2025 22:08:16 04/07/20 25 04/07/2025 CBC w/ auto diff monocytes, count, automated, blood (obs) 0.75 text: 0.10 - 0.90 10(3)/ mcL Not Available Not Available 04/07/2025 22:08:16 04/07/20 25 04/07/2025 CBC w/ auto diff eosinophils, auto, blood, absolute 0.08 text: 0.00 - 0.50 10(3)/ mcL Not Available Not Available 04/07/2025 22:08:16 04/07/20 25 04/07/2025 CBC w/ auto diff basophils, quant, auto, blood (obs) 0.07 text: 0.00 - 0.10 10(3)/ mcL Not Available Not Available 04/07/2025 22:08:16 04/07/20 25 04/07/2025 CBC w/ auto diff absolute immature granulocyte 0.03 text: 0.00 - 0.03 10 (3) mcL. Not Available Not Available 04/07/2025 22:08:16 04/07/20 25 04/07/2025 CBC w/ auto diff nucleated erythrocytes /100 leukocytes, ratio, blood (obs) 0 Not Available Not Available 12/2024 22:08:16 04/07/20 25 04/07/2025 CBC w/ auto diff lab interpretati on Abnorm al Not Available Not Available 22:08:16 04/07/2004/07/2025 CMP, serum or plasm a sodium, serum or plasma 137 mmol/ L low: 136mmo l/Lhig h: 145mmo l/L Not Available Not Available 04/07/2025 22:08:15 04/07/20 25 04/07/2025 CMP, serum or plasm a potassium, serum or plasma 4.2 mmol/ L low: 3.5mmo l/Lhig h: 5.1mmo l/L Not Available Not Available 04/07/2025 22:08:15 04/07/20 25 04/07/2025 CMP, serum or plasm a chloride, serum or plasma 103 mmol/ L low: 98mmol /Lhigh : 107mmo l/L Not Available Not Available 04/07/2025 22:08:15 04/07/2004/07/2025 CMP, serum or plasm a CO2, (carbon dioxide), total, serum or plasma 25 mmol/ L low: 22mmol /Lhigh : 30mmol /L Not Available Not Available 04/07/2025 22:08:15 04/07/2004/07/2025 CMP, serum or plasm a anion gap, serum or plasma 13.2 mmol/ L high: 18mmol /L Not Available Not Available 04/07/2025 22:08:15 04/07/20 25 04/07/2025 CMP, serum or plasm a glucose, qn [mass/volume ], serum or plasma 92 mg/dL low: 70mg/d Lhigh: 99mg/d L Not Available Not Available 04/07/2025 22:08:15 04/07/20 25 04/07/2025 CMP, serum or plasm a BUN (blood urea nitrogen), serum or plasma 12 mg/dL low: 8mg/dL high: 26mg/d L Not Available Not Available 04/07/2025 22:08:15 04/07/20 25 04/07/2025 CMP, serum or plasm a creatinine, serum or plasma 0.91 mg/dL low: 0.7mg/ dLhigh : 1.3mg/ dL Not Available Not Available 04/07/2025 22:08:15 04/07/20 25 04/07/2025 CMP, serum or plasm a BUN/creatini ne, ratio, serum 13 text: 12 - 20 ratio Not Available Not Available 04/07/2025 22:08:15 04/07/20 25 04/07/2025 CMP, serum or plasm a protein, total, serum 8 g/dL low: 6g/dLh igh: 8g/dL Not Available Not Available 04/07/2025 22:08:15 04/07/20 25 04/07/2025 CMP, serum or plasm a albumin, serum or plasma 4.5 g/dL low: 3.5g/d Lhigh: 5g/dL Not Available Not Available 04/07/2025 22:08:15 04/07/20 25 04/07/2025 CMP, serum or plasm a albumin/glob ulin, ratio, serum 1.3 low: 1high: 2.2 Not Available Not Available 04/07/2025 22:08:15 04/07/2004/07/2025 CMP, serum or plasm a calcium, serum or plasma 9.1 mg/dL low: 8.7mg/ dLhigh : 10.5mg /dL Not Available Not Available 04/07/2025 22:08:15 04/07/2004/07/2025 CMP, serum or plasm a bilirubin, total, serum or plasma 0.5 mg/dL low: 0.2mg/ dLhigh : 1.2mg/ dL Not Available Not Available 04/07/2025 22:08:15 04/07/2004/07/2025 CMP, serum or plasm a AST/SGOT (aspartate aminotransfe rase), serum or plasma 23 U/L high: 43U/L Not Available Not Available 04/07/2025 22:08:15 04/07/2004/07/2025 CMP, serum or plasm a ALT (alanine aminotransfe rase), serum or plasma 23 U/L high: 56U/L Not Available Not Available 04/07/2025 22:08:15 04/07/2004/07/2025 CMP, serum or plasm a alkaline phosphatase, serum or plasma 82 U/L low: 40U/Lh igh: 150U/L Not Available Not Available 04/07/2025 22:08:15 04/07/20 25 04/07/2025 CMP, serum or plasm a glomerular filtration rate/1.73 sq M predicted, qn, creatinine based formula (CKD-epi 2020), serum or plasma or blood low: 60 Creat inine Clear ance is the prefe rred crite vinod for selec ting drug dose adjus tment s in renal ly impai red patie nts. The GFR is provi ded as addit ional perti nent clini luisa infor matio n. GFR is repor carmen in mL/mi n/1.7 3 sq m. Calcu latio n based on the 2020 Chron ic Kidne y Disea se Epide miolo gy Colla borat ion (CKD- EPI) equat ion refit witho ut adjus tment for race. Not Available Not Available 04/07/2025 22:08:15 04/07/20 25 04/07/2025 CMP, serum or plasm a GFR, estimated (eGFR), serum () (obs) low: 60 Creat inine Clear ance is the prefe rred crite vinod for selec ting drug dose adjus tment s in renal ly impai red patie nts. The GFR is provi ded as addit ional perti nent clini luisa infor matio n. GFR is repor carmen in mL/mi n/1.7 3 sq m. Calcu latio n based on the 2008 Chron ic Kidne y Disea se Epide miolo gy Colla borat ion (CKD- EPI). Not Available Not Available 04/07/2025 22:08:15 04/07/20 25 04/07/2025 CMP, serum or plasm a glomerular filtration rate/1.73 sq M predicted among non-blacks, qn, creatinine based formula, serum or plasma or blood low: 60 Creat inine Clear ance is the prefe rred crite vinod for selec ting drug dose adjus tment s in renal ly impai red patie nts. The GFR is provi ded as addit ional perti nent clini luisa infor matio n. GFR is repor carmen in mL/mi n/1.7 3 sq m. Calcu latio n based on the 2008 Chron ic Kidne y Disea se Epide miolo gy Colla borat ion (CKD- EPI). Not Available Not Available 04/07/2025 22:08:15 04/07/2004/07/2025 CMP, serum or plasm a lab interpretati on Normal Not Available Not Available 12/2024 22:08:15 04/17/20 25 04/17/2025 elect rocar diogr am No observ ation record ed. FELICIA In-Office Order Internal Use Only DO Not Attach Compendium DO Not Attach Compendium, Do Not Delete/merge, [id number] 04/20/2025 08:50:48 04/17/20 elect rocar diogr am No observ ation record ed. [email or web address] Not Available 12/19/ 2025 13:45:17 Result Notes None recorded. Problems Name Problem SNOMED Code Status Onset Date Resolution Date Notes Provider Name and Address Organization Details Recorded Time Upper respirat ory infectio n 57908951 Completed 07/25/2016 James Muniz MD Attn: Accounting, [address] [facility], [place], [address], [facility] 7 17:30:21 Hemorrho ids 41482615 Completed 09/24/2018 James Muniz MD Attn: Accounting, [address] [place], [address], [facility] 9 15:11:06 Morbid obesity 449656518 Completed 07/25/2016 James Muniz MD Attn: Accounting, [address] [place], [address], [facility] 3 16:21:11 Fatigue 84223450 Completed 09/24/2018 James Muniz MD Attn: Accounting, [address] [place], [address], [facility] 9 15:10:58 Sleep apnea 47306088 Completed 09/24/2018 James Muniz MD Attn: Accounting, [address] [place], [address], [facility] 9 15:11:01 Tobacco user 611068212 Completed 07/25/2016 James Muniz MD Attn: Accounting, [address] [place], [address], [facility] 7 17:30:18 Essentia l hyperten tiera 54275830 Active Gala Lockhart MA [facility] [place] - [facility] 0 14:16:45 Overweig ht 227813068 Completed 201609/24/2018 James Muniz MD Attn: Accounting, [address] [place], [address], [facility] 9 15:10:55 Tobacco dependen ce syndrome 27394891 Active 2016 Gala Lockhart MA null, [place] - [facility] 0 14:16:45 Posterio r rhinorrh ea 53078790 Active 2017 Gala ARIK Lockhart [place], [place] [facility] 0 14:16:45 Body mass index 30+ - obesity 436808057 Active 2017 Gala ARIK Lockhart [place], [place] [facility] 0 14:16:45 Sleep pattern disturba nce 95886351 Completed 201809/24/2018 James Muniz MD Attn: Accounting, [address] [place], [place], [address] [place] [address], [place] - [facility] 9 15:10:39 Obstruct sydni sleep apnea syndrome 69079740 Active 2018 Gala AIRK Lockhart null, [place] - [facility] 0 14:16:45 Hypercho lesterol emia 03522039 Active 2018 Gala ARIK Lockhart [place], [place] [facility] 0 14:16:45 Gastroes ophageal reflux disease without esophagi tis 107391213 Active 2019 James Muniz MD Attn: Accounting, [address] [place], [place], [address] [place] [address], [place] - [facility] 0 09:23:30 Seasonal allergic rhinitis 730022798 Active 2019 James Muniz MD Attn: Accounting, [address] [place], [place], [address] [place] [address], [place] - [facility] 0 09:44:24 Anal warts 786197190 Active 2021 James Muniz MD Attn: Accounting, [address] [place], [place], [address] [place] [address], [place] - [facility] 2 16:55:40 Obesity 232348328 Active 2021 James Muniz MD Attn: Accounting, [address] [place], [address], [place] - [facility] 2 14:18:41 Pure hypercho lesterol emia 834931978 Active 2021 James Muniz MD Attn: Accounting, [address] [facility], [place], [address], [place] - [facility] 2 10:07:02 Alcohol dependen ce 22341851 Active 2021 James Muniz MD Attn: Accounting, [address] [facility], [place], [address], [place] [facility] 2 10:31:31 Right hemipare sis 530113109 Active 2021 James Muniz MD Attn: Accounting, [address] [facility], [place], [address], [place] - [facility] 2 10:34:51 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 856980048 Active 2021 James Muniz MD Attn: Accounting, [address] [facility], [place], [address], [place] - [facility] 2 10:35:04 Osteoart hritis of right hip joint 77724277770 9107 Active 2022 James Muniz MD Attn: Accounting, [address] [facility], [place], [address], [place] - [facility] 3 16:04:14 Paresis of right lower limb 70753214052 711625 Active 2022 James Muniz MD Attn: Accounting, [address] [facility], [place], [address], [place] - [facility] 3 16:13:30 Morbid obesity 898368514 Active 2022 James Muniz MD Attn: Accounting, [address] [facility], [place], [address], [place] - [facility] 3 16:21:11 Sinusiti s 14555615 Active 2024 OMID RAYA Attn: Carissa, [address] [facility], [place], [address], [facility] 5 16:55:03 Problem Notes None recorded. Medical Equipment None Reported. Allergies Allergen ID Allergen Name Allergen Category Reaction Reaction Severity Criticality Documentation Date Start Date Code Code System Note Provider Name and Address Organization Details Recorded Time 943048 No known allergy (situatio n) Not available Not available Not available Not available 06/21/2023 65649 6003 SNOMED Avni Muniz MD Attn: Ernie mark,[address] [facility], [place], [address], [facility] 4 17:05:04 No known drug allergies Medications [...] Updated DateTime 5 180.34 cm 39.7 kg/m2 345097. 31 g 16 /min 97.6 [degF] 61 /min 150/85 mm[Hg] Santiago Romero [place] - [facility] 5 16:02:53 Date Recorded Body height Body mass index (BMI) Body weight Oxygen saturation Heart rate Respiratory rate Body temperature Systolic And Diastolic Provider Name and Address Organization Details Last Updated DateTime 5 180.34 cm 39.3 kg/m2 199268. 33 g 97 % 83 /min 16 /min 97.2 [degF] 139/84 mm[Hg] Tri Guerra MA [facility] 5 16:29:25 Date Recorded Body height Body mass index (BMI) Body weight Heart rate Respiratory rate Body temperature Systolic And Diastolic Provider Name and Address Organization Details Last Updated DateTime 5 180.34 cm 39.8 kg/m2 149138. 34 g 61 /min 16 /min 97.2 [degF] 137/77 mm[Hg] Tri Guerra MA [facility] 5 16:23:00 Date Recorded Body height Body mass index (BMI) Body weight Body temperature Oxygen saturation Heart rate Systolic And Diastolic Provider Name and Address Organization Details Last Updated DateTime 5 180.34 cm 39.8 kg/m2 195546. 53 g 97.9 [degF] 99 % 67 /min 113/75 mm[Hg] Akilah Bustos MA [facility] 5 14:59:12 Date Recorded Body height Body mass index (BMI) Body weight Heart rate Oxygen saturation Systolic And Diastolic Provider Name and Address Organization Details Last Updated DateTime 5 180.34 cm 39.5 kg/m2 460341. 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 Never used electronic cigarettes Information not available 01/06/2020 What is your exercise level? Occasional Information not available 09/02/2020 Mental Status Question Answer Note LastModified by Organizat ion Details LastModified Time Do you feel stressed (tense, restless, nervous, or anxious, or unable to sleep at night)? [id number] at work Information not available 09/02/2020 Family History Relationship Description Onset Age of this Age Resolved Age Notes LastModified by Organization Details LastModified Time Mother Asthma Not available 12/22/2015 16:53:54 Mother Hypertensive disorder Not available 2015 16:53:54 Father Hypertensive disorder Not available 2015 16:53:54 Father Heart disease Not available 2015 16:53:54 Brother Hypertensive disorder Not available 2015 16:53:54 Notes:no new 02/08/23, 4, 09/25/23, 10/10/23, 10/16/23, 01/03/24, 01/21/24, 02/18/24, 04/14/24 Medical History Condition Response High Blood Pressure Y Asthma Y Allergies Y Immunizations Vaccine Type Date Status Note Provider Nam e and Address Organization Details Recorded Time SARS-COV-2 (COVID-19) vaccine, UNSPECIFIED 1 completed Not Available [facility] 05/28/2023 22:35:09 Influenza, split virus, quadrivalent, preservative 8 completed Not Available [facility] 05/17/2019 02:50:29 Influenza, split virus, quadrivalent, preservative 9 completed Not Available [facility] 05/17/2019 02:43:07 Influenza, split virus, quadrivalent, preservative 2 completed James Muniz MD Attn: Accounting,[address] [facility], [place], [address], [facility] 04/17/2022 15:32:00 Tdap 4 completed [facility] [place] [place] - [facility] 08/06/2023 17:05:13 Past Encounters Encounter ID Performer Location Encounter Start Date Encounter Closed Date Diagnosis/Indication Diagnosis SNOMED-CT Code Diagnosis ICD10 Code Diagnosis IMO Codes Diagnosis Note [id number] Ron Ramires MD [facility] [address] [place] [address] 05/04/2014 16:05:41 05/04/2014 16:52:21 Essential [facility] 33123449 [id number] [facility] [address] [place] [address] 07/02/2014 16:55:32 07/03/2014 12:31:07 Essential hypertension 07487111 Upper resp iratory infection 68128479 [id number] Ron Ramires MD [facility] [address] [place] [id number] 08/31/2014 15:49:20 08/31/2014 16:07:14 Essential hypertension 95251626 [id number] DEMARCUS Navas [facility] [address] [place] [address] 09/15/2014 15:37:31 09/15/2014 16:07:07 Upper respiratory infection 35161560 [id number] [facility] [address] [place] [address] 12/29/2014 16:33:43 12/30/2014 11:48:54 Upper respiratory infection 50225111 Morbid obesity 544183086 [id number] [facility] [address] [place] [address] 04/07/2015 16:26:27 04/08/2015 08:04:58 Essential hypertension 39441396 I10 Adult heal th examination 423375175 Z00.00 Screening for malignant neoplasm of prostate 025543278 Z12.5 Fatigue 00328931 R53.83 [id number] ANKITA Navas- [facility] [address] [place] [address] 07/20/2015 16:21:45 07/20/2015 17:03:51 Upper respiratory infection 34744355 J06.9 [id number] NaraANKITA Meza- [facility] [address] [place] [address] 12/22/2015 16:26:56 12/23/2015 17:53:05 Upper respiratory infection 58335656 J06.9 Tobacco user 813232786 Z 72.0 [id number] MD Sharee Harrison ([facility]) [address] [place] [address] 07/25/2016 15:43:46 07/26/2016 09:42:23 Essential hypertension 41024878 I10 [address] same with low salt diet Overweight 541430702 E66 .3 Recommend to loose weight with diet control and exercise. Tobacco de pendence syndrome 79188482 F17.290 Recommend to slow andrzej and quit at the earliest- /2 PPD [id number] MD Sharee Harrison ([facility]) [address] [place] [address] 11/03/2016 13:43:52 11/06/2016 10:32:27 Essential hypertension 17415709 I10 [address] same with low salt diet Obstructiv e sleep apnea syndrome 14558702 G47.33 Diagnosed case, 'Mask does not stay there because of high pressure'r efer Plantar heel pain 061664 03 M79.672 Recommende d exerciseTa ke OTC ibuprofen with meal for mod to severe pain Overweight 222641277 E66 .3 Recommend to loose weight with diet control and exercise. [id number] MD Sharee Harrison ([facility]) [address] [place] [address] 02/06/2017 15:43:12 02/06/2017 16:45:37 Essential hypertension 15379642 I10 Mildly elevated probable due to # 2 below, Recheck in [address] same with low salt diet Obstructiv e sleep apnea syndrome 22776889 G47.33 Diagnosed case, 'Mask does not stay there because of high pressure'A waiting new machine to be delivered Acute uppe r respiratory infection 66577150 J06.9 Hydrate well. Use humidifier Take medication as prescribed , If getting worse come in / go to ER Tobacco de pendence syndrome 71634949 F17.200 Recommend to slow andrzej and quit at the earliest History of transient ischemic attack 002434002 Z86.73 In the past. Take regular asprin as before. [id number] MD Sharee Harrison ([facility]) [address] [place] [address] 05/09/2017 15:41:12 05/11/2017 11:31:44 Essential hypertension 97009078 I10 Controlled [address] Ct same with low salt diet Sleep apnea 87367916 G47 .30 Yet to get the machine... ! Tobacco de pendence syndrome 46358950 F17.200 Recommend to slow andrzej and quit at the earliest-1 /2 PPD Overweight 367855404 E66 .3 Recommend to loose weight with diet control and exercise. Adult heal th examination 655758219 Z00.00 [id number] MD Sharee Harrison ([facility]) [address] [place] [address] 08/07/2017 15:42:49 08/08/2017 10:09:59 Essential hypertension 30042046 I10 [address] same with low salt diet Overweight 460529081 E66 .3 Recommend to loose weight with diet control and exercise. Tobacco de pendence syndrome 40825457 F17.200 Recommend to slow andrzej and quit at the earliest-1 /2 PPD Sleep apnea 03264866 G47 .30 Yet to get the machine... ! Posterior rhinorrhea 758 05344 R09.82 Avoid known allergens [id number] MD Sharee Harrison 14 IM [address] [facility] [address] Srinivasan [address] [place] [address] 12/07/2017 14:47:08 12/12/2017 17:24:06 Essential hypertension 12063131 I10 [address] same with low salt diet Overweight 670227430 E66 .3 Recommend to loose weight with diet control and exercise. History of transient ischemic attack 758478668 Z86.73 In the past. Take regular asprin as before. Tobacco de pendence syndrome 58624412 F17.200 Recommend to slow andrzej and quit at the earliest-1 /2 PPD Mass of neck 099528183 R 22.1 upper R/side neck area, ? muscular vs cystic, then refer for probable excision Screening for malignant neoplasm of colon 652893563 Z12.11 [id number] MD Sharee Harrison [address] IM [address] [facility] [place] [address] 01/02/2018 15:47:58 01/03/2018 13:54:35 Acute upper respiratory infection 85265909 J06.9 Per the pt.Hydrate well. Use humidifier Take medication as prescribed , If getting worse come in / go to ER Wheezing symptom 3308732 08 R06.2 try to quit the smoking habit early Tobacco de pendence syndrome 68288003 F17.200 Recommend to slow andrzej and quit at the earliest-1 /2 PPD [id number] MD Sharee Harrison 14 IM [address] [facility] [place] [address] 03/12/2018 15:20:31 03/15/2018 13:13:45 Essential hypertension 59968692 I10 Controlled [address] same with low salt diet History of transient ischemic attack 160013958 Z86.73 In the past. Take regular asprin as before. Body mass index 30+ - obesity 164984098 Z68.39 Recommend to loose weight with diet control and exercise. Sleep apnea 81233458 G47 .30 Yet to get the machine... ! Tobacco de pendence syndrome 39648345 F17.200 Recommend to slow andrzej and quit at the earliest- under 1/2 PPD Needs infl uenza immunization 347189260 Z23 no issue before [id number] MD Sharee Harrison 14 IM [address] [facility] [place] [address] 06/13/2018 15:39:51 06/14/2018 11:38:40 Essential hypertension 34327865 I10 [address] same with low salt diet Body mass index 30+ - obesity 163406440 Z68.39 Recommend to loose weight with diet control and exercise. Tobacco de pendence syndrome 13997857 F17.200 Recommend to slow andrzej and quit at the earliest- under 1/2 PPD Screening for malignant neoplasm of colon 450919116 Z12.11 Sleep jacqueline tasia disturbance 74347006 G47.9 had sleep study , couldn't see the provider to get the machine , prefer to see a new one Acute uppe r respiratory infection 13373607 J06.9 Hydrate well. Use humidifier Take medication as prescribed , If getting worse come in / go to ER Adult heal examination 504013713 Z00.00 Baseline labs [id number] MD Sharee Harrison [address] IM [address] [facility] [place] [address] 09/24/2018 14:40:30 09/25/2018 09:42:27 Essential hypertension 72848976 I10 Controlled [address] same with low salt diet History of transient ischemic attack 570123092 Z86.73 In the past. Take regular asprin as before. Tobacco de pendence syndrome 97006561 F17.200 Recommend to slow andrzej and quit at the earliest- 7 cig/day Obstructiv e sleep apnea syndrome 60536436 G47.33 Diagnosed case, 'Mask does not stay there because of high pressure'A waiting new machine to be delivered 09/24/18 Did see , planning another home sleep study and also referred to ENT provider for sinus issue, to see the latter in 2 days per the pt Body mass index 30+ - obesity 015469103 Z68.39 Recommend to loose weight with diet control and exercise. Screening for malignant neoplasm of colon 105450232 Z12.11 Furuncle 412152522 L02.9 2 In L/forearm few on r/ upper arm and 1 on backRTC in 2 wks in no better/ call Adult [facility] examination 194960194 Z00.00 Baseline labs [id number] MD Sharee Harrison 14 IM [address] [facility] [place] [address] 10/11/2018 08:45:35 10/14/2018 10:29:33 Furuncle 688025292 L02.92 In L/forearm few on r/ upper arm and 1 on backRTC in 2 wks in no better/ call 9still somewhat there, lot better than before. Itching + goldie after shower. [id number] MD Sharee Harrison 14 IM [address] [facility] [place] [address] 12/17/2018 08:43:00 12/19/2018 09:53:50 Essential hypertension 85716299 I10 [address] same with low salt diet History of transient ischemic attack 487316121 Z86.73 In the past. Take regular asprin as before. Body mass index 30+ - obesity 666267132 Z68.39 Recommend to loose weight with diet control and exercise. Obstructiv e sleep apnea syndrome 91471846 G47.33 Diagnosed case, 'Mask does not stay there because of high pressure'A waiting new machine to be delivered 09/24/18 Did see , planning another home sleep study and also referred to ENT provider for sinus issue, to see the latter in 2 days per the pt12/17/18H as f/u with the provider in 3 days. Tobacco de pendence syndrome 74526360 F17.200 Recommend to slow andrzej and quit at the earliest- 7 cig/day Furuncle 443218134 L02.9 2 In L/forearm few on r/ upper arm and 1 on backRTC in 2 wks in no better/ call 9still somewhat there, lot better than before. Itching + goldie after shower.11/29 Prefer bactrim better, Will refer to dermatolog y as well. Screening for malignant neoplasm of colon 907000506 Z12.11 Long-term drug therapy 782061309 Z79.666 [id number] MD Sharee Harrison 14 IM [address] [facility] [place] [address] 02/04/2019 08:51:17 02/05/2019 09:54:42 Essential hypertension 72235115 I10 Controlled . [address] same with low salt diet Lightheadedness 59758773 8 R42 Clinically feels better.Pro bably due to wax in ear too. Impacted cerumen 7131855 6 H61.23 L>R side,Will flush it Needs infl uenza immunization 073786504 Z23 no issue before [id number] MD Sharee Harrison 14 IM [address] [facility] [place] [address] 03/20/2019 08:44:44 03/21/2019 12:26:26 Essential hypertension 16728214 I10 [address] same with low salt diet Body mass index 30+ - obesity 868191220 Z68.39 Recommend to loose weight with diet control and exercise. Soft tissu e swelling of ankle joint 983439478 R22.40 no obvious , probably due to irritation by the new boots- reassured. recommend not wear if not needed. Seasonal a llergic rhinitis 745843330 J30.2 Avoid known allergens. Take Xyzal History of transient ischemic attack 221262326 Z86.73 In the past. Take regular asprin as before along with plavixChec k Hypercholesterolemia 136 66444 E78.00 Low cholestrol diet emphasised Ct medication as prescribed LDL needs to be <70 due h/o TIA Long-term drug therapy 814765701 Z79.899 Baseline labs Screening for malignant neoplasm of colon 267849790 Z12.11 Wheezing symptom 0345796 08 R06.2 try to quit the smoking habit early Tobacco de pendence syndrome 69843177 F17.200 Recommend to slow andrzej and quit at the earliest- 7 cig/day [id number] MD Sharee Harrison 14 IM [address] [facility] [place] [address] 03/28/2019 13:56:54 03/28/2019 16:19:01 Cough 57256883 R05 With R/lower chest pain.Z tonia, hydrate well.CXR, Tylenol PRN. Steam inhalation Stop smokingif no better by Sunday call us for off days if needed.Use the inhalersIf getting worse go to ER. Tobacco de pendence syndrome 38082338 F17.200 Recommend to slow andrzej and quit at the earliest- 7 cig/day [id number] MD Sharee Harrison 14 IM [address] [facility] [place] [address] 06/26/2019 13:53:19 06/27/2019 09:00:20 Atypical chest pain 319224447 R07.89 R/O cardiac vs gastric vs ? psychologi calEKG, Stress test.Ranit idineStop smoking.Re commend tolerable exercise.l oose weightStop sodaPt to follow up with his sleep provider too.Will start on toprol 25mg daily History of transient ischemic attack 717818106 Z86.73 In the past. Take regular asprin as before along with plavixChec 06/26/19Ha d another episode, Better now. Already has appt with Neurologjohn Alvarado Long-term drug therapy 999253173 Z79.899 Baseline labs Tobacco de pendence syndrome 42006529 F17.200 Recommend to slow andrzej and quit at the earliest- 7 cig/daywan ts nicotine patch [id number] MD Sharee Harrison 14 IM [address] [facility] [address] [place] [address] 07/31/2019 08:15:54 08/01/2019 09:24:37 Essential hypertension 96519510 I10 Controlled [address] same with low salt diet07/31/19 BP at pharmacy higher, at times with ligjuan f headedness , Will add lisinopril 10mg daily he was on before (Was d/c per recent admission at the hospital)C all back with BP readings in 1 wk. Hypercholesterolemia 136 74166 E78.00 Low cholestrol diet emphasised Ct medication as prescribed LDL needs to be <70 due h/o TIA07/31/19W ill f/u with labs History of transient ischemic attack 144846421 Z86.73 In the past. Take regular asprin as before along with plavixChec 06/26/19Ha d another episode, Better now. Already has appt with Wade KamaraPt did see , will be following up the specialist in 6 months. No Keppra on board (if needed will be considerin g EEG in future per the specialist ) Obstructiv e sleep apnea syndrome 25251533 G47.33 Diagnosed case, 'Mask does not stay there because of high pressure'A waiting new machine to be delivered 09/24/18 Did see , planning another home sleep study and also referred to ENT provider for sinus issue, to see the latter in 2 days per the pt12/17/18H as f/u with the provider in 3 days. 0Did see the specialist who recommende d to control BP better then may consider a stimulant to keep him awake in the day time (probably for narcolepsy ) Tobacco de pendence syndrome 84806399 F17.200 Recommend to slow andrzej and quit at the earliest- 7 cig/daywan ts nicotine patch4/2/2 0Still smokes 5 cig/day Couldn't fill patch costs $85.00. Gastroesop hageal reflux disease without esophagitis 111946535 K21.9 Feels better while on ranitidine but prefer a different one due to contaminat ion, try famotidine .Yet to complete stress test, but clinically feels better,. Long-term drug therapy 159947608 Z79.899 Baseline labs [id number] MD Sharee Harrison [address] [facility] [address] [place] [address] 10/03/2019 09:50:09 10/06/2019 09:44:38 Hypercholesterolemia 02902489 E78.00 Low cholestrol diet emphasised Ct medication as prescribed LDL needs to be <70 due h/o TIA10/03/19W ill f/u with labs Essential hypertension 70166413 I10 Controlled [address] same with low salt diet07/31/19 BP at pharmacy higher, at times with samuel haynes , Will add lisinopril 10mg daily he was on before (Was d/c per recent admission at the hospital)C all back with BP readings in 1 wk.10/03/19 Feeling better. Last BP 130/98, not symptomati c History of transient ischemic attack 563396091 Z86.73 In the past. Take regular asprin as before along with plavixChec 06/26/19Ha d another episode, Better now. Already has appt with Neurologis t Dr.John KamaraPt did see , will be following up the specialist in 6 months. No Keppra on board (if needed will be considerin g EEG in future per the specialist )10/03/19Fee ls well. Long-term drug therapy 604120792 Z79.899 Baseline labs Wheezing symptom 6291773 08 R06.2 try to quit the smoking habit early Tobacco de pendence syndrome 18585361 F17.200 Recommend to slow andrzej and quit at the earliest- 7 cig/daywan ts nicotine patch4/2/2 0Still smokes 5 cig/day Couldn't fill patch costs $85.00.10/02Recomme nd to slow andrzej and quit at the earliest [id number] MD Sharee Harrison 14 IM [address] [facility] [address] [place] [address] 01/06/2020 08:47:50 01/07/2020 10:50:37 Essential hypertension 69788792 I10 Home BP somewhat higher. increase met succinate to 50mg daily and call back with BP in 1 wklow salt diet. Hypercholesterolemia 136 47722 E78.00 Low cholestrol diet emphasised Ct medication as prescribed LDL needs to be <70 due h/o TIA01/06/20W ill f/u with labs Obstructiv e sleep apnea syndrome 58737792 G47.33 Diagnosed case, 'Mask does not stay there because of high pressure'A waiting new machine to be delivered Did see the specialist who recommende d to control BP better then may consider a stimulant to keep him awake in the day time (probably for narcolepsy )01/06/20Rec ommend to f/u your specialist . Tobacco de pendence syndrome 72756457 F17.200 07/31/19til l smokes 5 cig/day Couldn't fill patch costs $85.00.12/02Recomme nd to slow andrzej and quit at the earliest History of transient ischemic attack 967942471 Z86.73 In the past. Take regular asprin as before along with plavixChec 06/26/19Ha d another episode, Better now. Already has appt with Neurologis t Dr.John KamaraPt did see , will be following up the specialist in 6 months. No Keppra on board (if needed will be considerin g EEG in future per the specialist )10/03/19Fee ls well. 0Was told to stop aspirin, Pl confirm with your specialist Posterior rhinorrhea 758 45563 R09.82 Avoid known allergensR efill sent Gastroesop hageal reflux disease without esophagitis 760102609 K21.9 Feels better while on ranitidine but prefer a different one due to contaminat ion, try famotidine . Long-term drug therapy 156158840 Z79.899 Baseline labs Seasonal a llergic rhinitis 401476078 J30.2 Avoid known allergens. Take Xyzal [id number] MD Sharee Harrison 14 IM [address] [facility] [address] [place] [address] 05/03/2020 09:07:50 05/04/2020 19:50:32 Essential hypertension 17051190 I10 Home BP somewhat higher. increase met succinate to 50mg daily and call back with BP in 1 wklow salt diet. 1increase met succinate 100mg and call back with BP readings. Hypercholesterolemia 136 00809 E78.00 Low cholestrol diet emphasised Ct medication as prescribed LDL needs to be <70 due h/o TIA05/03/20W ill f/u with labs Gastroesop hageal reflux disease without esophagitis 498640676 K21.9 Feels better while on ranitidine but prefer a different one due to contaminat ion, try famotidine . Obstructiv e sleep apnea syndrome 31189864 G47.33 Diagnosed case, 'Mask does not stay there because of high pressure'A waiting new machine to be delivered Did see the specialist who recommende d to control BP better then may consider a stimulant to keep him awake in the day time (probably for narcolepsy )01/06/20Rec ommend to f/u your specialist .05/03/20u ill some 'heavy sleep' at times, Not see the specialist recentlyNo QUIN per the pt Tobacco de pendence syndrome 42293370 F17.200 07/31/19til l smokes 5 cig/day Couldn't fill patch costs $85.00.05/03Recomme nd to slow andrzej and quit at the earliest History of transient ischemic attack 411944829 Z86.73 In the past. Take regular asprin as before along with plavixChec 06/26/19Ha d another episode, Better now. Already has appt with Neurologis t Dr.John KamaraPt did see , will be following up the specialist in 6 months. No Keppra on board (if needed will be considerin g EEG in future per the specialist )10/03/19Fee ls well. 0Was told to stop aspirin, Pl confirm with your specialist 05/03/20Ct all. Wheezing symptom 2718578 08 R06.2 Try to quit the smoking habit early Renewal of prescription 253150413 Z76.0 Long-term drug therapy 459690084 Z79.899 Baseline labs [id number] MD Sharee Harrison 14 IM [address] [facility] [address] [place] [address] 09/02/2020 08:37:39 09/03/2020 07:40:38 Hypercholesterolemia 07930489 E78.00 Low cholestrol diet emphasised Ct medication as prescribed LDL needs to be <70 due h/o TIA 09/02/20 Will f/u with labs History of transient ischemic attack 912728305 Z86.73 In the past. Take regular asprin as before along with plavix Check 01/06/20 Was told to stop aspirin, Pl confirm with your specialist 09/02/20 Ct all.- on plavix Gastroesop hageal reflux disease without esophagitis 537240080 K21.9 Loose weight , avoid soda, spicy stuff, Stop smoking Tolerating famotidine Seasonal a llergic rhinitis 707089271 J30.2 Avoid known allergens. Take Xyzal Posterior rhinorrhea 758 64337 R09.82 Avoid known allergensR efill sent Essential hypertension 56182763 I10 [address] same with low salt diet Tobacco de pendence syndrome 15794603 F17.200 Recommend to slow down and quit at the earliest- 1/2 PPD Long-term drug therapy 056344118 Z79.899 Baseline labs Screening for malignant neoplasm of colon 464555843 Z12.11 [id number] MD Sharee Harrison 14 IM [address] [facility] [address] [place], [place] [address] [address] 01/05/2021 15:41:55 01/06/2021 07:45:24 Essential hypertension 45522675 I10 [address] same with low salt diet Hypercholesterolemia 136 52598 E78.00 Low cholestrol diet emphasised Ct medication as prescribed LDL needs to be <70 due h/o TIA 09/02/20 Will f/u with labs01/05/21 Ct all. History of transient ischemic attack 331864874 Z86.73 In the past. Take regular asprin as before along with plavix Check 01/06/20 Was told to stop aspirin, Pl confirm with your specialist 01/05/21 Ct all.- on plavix Gastroesop hageal reflux disease without esophagitis 164268817 K21.9 Loose weight , avoid soda, spicy stuff, Stop smoking Tolerating famotidine Obstructiv e sleep apnea syndrome 08936076 G47.33 Diagnosed case, 'Mask does not stay there because of high pressure'A waiting new machine to be delivered Did see the specialist who recommende d to control BP better then may consider a stimulant to keep him awake in the day time (probably for narcolepsy )01/06/20Rec ommend to f/u your specialist .05/03/20i ll some 'heavy sleep' at times, Not seen the specialist recentlyNo QUIN per the pt01/05/21Ye t to connect again Tobacco de pendence syndrome 70476288 F17.200 Recommend to slow down and quit at the earliest- 05/01 PPD Screening for malignant neoplasm of colon 340103962 Z12.11 Body mass index 30+ - obesity 611466243 Z68.39 Recommend to loose weight with diet control and exercise. Anemia 116489416 D64.9 Mild, may take OTC iron tab daily [id number] MD Sharee Harrison 14 IM 4 [facility] [address] [place] [address] 06/14/2021 15:19:40 06/15/2021 13:50:59 Hypercholesterolemia 16020534 E78.00 Low cholestrol diet emphasised Ct medication as prescribed LDL needs to be <70 due h/o TIA- wnl History of transient ischemic attack 058828820 Z86.73 In the past. Take regular asprin as before along with plavix Check Was told to stop aspirin, Pl confirm with your specialist Gastroesop hageal reflux disease without esophagitis 643082972 K21.9 Loose weight , avoid soda, spicy stuff, Stop smoking Tolerating famotidine Essential hypertension 40309870 I10 Somewhat higher, ever at home Increase lisinopril to 20mg daily low salt diet Ct same toprol as before Obstructiv e sleep apnea syndrome 22366885 G47.33 06/14/21Did see recentlyye t to get the machine Tobacco de pendence syndrome 26693633 F17.200 Recommend to slow down and quit at the earliest- 05/01 PPD Anal warts 812729580 A63 .0 multipleRe pablo to colorectal for probable cryotherap y vs ? surgery/ex cision Atypical chest pain 1025 57680 R07.89 R/O cardiac vs gastric vs ? psychologi calEKG, Stress test.Famot idine regularlyS top smoking.Re commend tolerable exercise.l oose weightStop soda Dizzy spells 095411925 R 42 Probably related uncontroll ed BP vs / chest abnormalit yFeeling OK nowIf getting worse go to ER Body mass index 30+ - obesity 642553726 Z68.39 Recommend to loose weight with diet control and exercise. [id number] MD Sharee Harrison 14 IM [address] [facility] [place] [address] 11/30/2021 11:27:11 12/01/2021 13:55:33 Hypercholesterolemia 16621150 E78.00 Low cholestrol diet emphasised Ct medication as prescribed LDL needs to be <70 due h/o TIA- wnl History of transient ischemic attack 990245701 Z86.73 In the past. Take regular asprin as before along with plavix Check Was told to stop aspirin, Pl confirm with your specialist Gastroesop hageal reflux disease without esophagitis 581626530 K21.9 Loose weight , avoid soda, spicy stuff, Stop smoking Tolerating famotidine Essential hypertension 30632269 I[address] same with low salt diet Obstructiv e sleep apnea syndrome 53521559 G47.33 Under care by Tobacco de pendence syndrome 73589885 F17.200 Recommend to slow down and quit at the earliest- 1/2 PPD Obesity 409853004 E66.9 Recommend to loose weight with diet control and exercise. Long-term drug therapy 493573196 Z79.899 Baseline labs Pain of le ft ankle joint 5099850419 2918771 M25.572 l/outer ankle area s/p working longer time? Sprain, r/o fractureAC EKeep it elevatedAl elisha with meal PRN Anal warts 680621772 A63 .0 multipleRe pablo to colorectal for probable cryotherap y vs ? surgery/ex cision- will refer again [id number] MD Sharee Harrison [address] IM [address] [facility] [place] [address] 02/03/2022 09:36:14 02/06/2022 15:01:33 Right hemiparesis 247431947 G81.90 Along with AMS s/p ETOHrxed with tPAWeaknes s in RLE + RUE better, improving- using walker vs canerecomm ended PT, refersigne d off disability parking Alcohol dependence 78636 003 F10.20 Recommend to slow down and quit at the earliest. -did quit since the recent admission Pure hypercholesterolemia 089182591 E78.00 LDL was 87 at hospital,I ncrease atorvastat in to 80mg at dinner CVA - cere brovascular accident due to cerebral artery occlusion 268477384 I63.50 Per the recent admissionH as appt with Dr.Sherwoo vazquez 02/23/22On asprin and plavix Renewal of prescription 449153113 Z76.0 Impacted c erumen of bilateral ears 4568148404 761521 H61.23 will flush themAlread y tried OTC debrox Maxillary sinusitis 8834 8008 J32.0 with opacificat ion per the MRIloratid ine [id number] MD Sharee Harrison 14 IM [address] [facility] [address] [place] [address] 04/17/2022 12:17:02 04/18/2022 13:57:35 Hypercholesterolemia 47286854 E78.00 Low cholestrol diet emphasised Ct medication as prescribed LDL needs to be <70 due h/o TIA- wnl Right hemiparesis 887466 009 G81.90 Along with AMS s/p ETOHrxed with tPAWeaknes s in RLE + RUE better, improving- using walker vs canerecomm ended PT, refersigne d off disability parking CVA - cere brovascular accident due to cerebral artery occlusion 156567839 I63.50 Per the recent admissionU nder care by Dr.Sherwoo vazquez 02/23/22On ly on asprin per Neuroretur chelsie back to work from tomorrow 04/18/22 Essential hypertension 08731822 I10 Mildly higher, add HCTZlow salt diet Obstructiv e sleep apnea syndrome 68728449 G47.33 Under care by using the machine for awhile, machine returned, will refer back ? a new study needed. Tobacco de pendence syndrome 41430425 F17.200 Recommend to slow down and quit at the earliest- 1/2 PPD Administra tion of influenza vaccine 39976594 Z23 no issue before Long-term drug therapy 892320608 Z79.899 Baseline labs Screening for malignant neoplasm of colon 859937178 Z12.11 [id number] MD Sharee Harrison [address] IM [address] [facility] [place] [address] 06/02/2022 15:25:05 06/05/2022 13:06:50 Acute upper respiratory infection 58812716 J06.9 Hydrate well. Use humidifier Take medication as prescribed , If getting worse come in / go to ERcvid and strept were ng Obesity 668616473 E66.9 Recommend to loose weight with diet control and exercise. Screening for malignant neoplasm of colon 168547386 Z12.11 Tobacco de pendence syndrome 86017166 F17.200 Recommend to slow down and quit at the earliest- 1/2 PPD [id number] MD Sharee Harrison [address] IM [address] [facility] [place] [address] 06/29/2022 15:48:48 06/30/2022 13:20:00 Hip joint painful on movement 711136371 M25.559 M25.551 R/side r/o DJD vs fractureLo ose weightX rayStop smoking.Ta ke tylenol or advil with meal for severe pain Morbid obesity 295678769 E66.01 Recommend to loose weight with diet control and exercise. [id number] MD Sharee Harrison [address] [place] [address] 08/16/2022 15:47:25 08/18/2022 16:15:31 Hypercholesterolemia 17789071 E78.00 Low cholestrol diet emphasised Ct medication as prescribed CVA - cere brovascular accident due to cerebral artery occlusion 945598849 I63.50 Per the recent admissionU nder care by Dr.Sherwoo vazquez 02/23/22On ly on asprin per Neuro Gastroesop hageal reflux disease without esophagitis 623371934 K21.9 Loose weight , avoid soda, spicy stuff, Stop smoking Tolerating famotidine Pure hypercholesterolemia 073558873 E78.00 LDL was 87 at hospital,I ncrease atorvastat in to 80mg at dinner Essential hypertension 08220732 I10 Controlled [address] same with low salt diet Obstructiv e sleep apnea syndrome 41310969 G47.33 Under care by using the machine for awhile, machine returned, will refer back ? a new study needed. Tobacco de pendence syndrome 06504861 F17.200 Recommend to slow down and quit at the earliest- 1/2 PPD Obesity 524070089 E66.9 Recommend to loose weight with diet control and exercise. Osteoarthr itis of right hip joint 1489132139 18874 M16.11 X ray:mild R/OA of R/hip & pubic symphysisF eels lot better changing the box spring mattress of bed Paresis of right lower limb 8998334593 9446607 G83.11 Since CVA (dec) lot better now except climbing stairs at time difficult, mostly OK Wheezing symptom 5588659 08 R06.2 Try to quit the smoking habit early [id number] MD Sharee Harrison [address] IM [address] [facility] [place] [address] 11/09/2022 15:13:58 11/13/2022 11:47:19 Spasm of muscle of lower back 9166636329 6868213 M62.830 L/lower back areaStretc liliana exerciseTi zanidine few advil Low blood pressure 04420 003 I95.9 Gained weight tooWill hold lisinopril and recheck BP in 2 wks (ct with toprol as before) Morbid obesity 813706907 E66.01 Recommend to loose weight with diet control and exercise.- stop fruit juice pl.Wants trial of topiramate Wheezing symptom 2103498 08 R06.2 Try to quit the smoking habit early Tobacco de pendence syndrome 02121503 F17.200 Recommend to slow down and quit at the earliest- 1/2 PPD [id number] MD Sharee Harrison [address] IM [address] [facility] [place] [address] 11/27/2022 15:45:05 11/29/2022 09:13:45 Essential hypertension 84547187 I10 [address] same with low salt dietSince home BP at times to 150s will add HCTZ 12.5mg daily Hypercholesterolemia 136 72087 E78.00 Low cholestrol diet emphasised Ct medication as prescribed CVA - cere brovascular accident due to cerebral artery occlusion 781806880 I63.50 Per the recent admissionU nder care by Dr.Sherwoo vazquez 02/23/22On ly on asprin per Neuro Gastroesop hageal reflux disease without esophagitis 488067228 K21.9 Loose weight , avoid soda, spicy stuff, Stop smoking Tolerating famotidine Tobacco de pendence syndrome 36274250 F17.200 Recommend to slow down and quit at the earliest- /2 PPD Osteoarthr itis of right hip joint 0059889599 06134 M16.11 X ray:mild R/OA of R/hip & pubic symphysisF eels lot better changing the box spring mattress of bed Long-term drug therapy 083430328 Z79.899 Baseline labs Spasm of back muscles 20 0334021 M62.830 Take tizanidine PRN [id number] MD Sharee Harrison 14 IM [address] [facility] [address] [place], [place] [address] [address] 01/02/2023 15:54:30 01/03/2023 11:32:01 Acute gingivitis 06616063 K05.00 Oral care with flossing & brushing.F /u with your dentistSto p smoking, soda ect Tobacco de pendence syndrome 83845787 F17.200 Recommend to slow down and quit at the earliest- 05/01 PPD [id number] MD Sharee Harrison 14 IM [address] [facility] [place] [address] 01/24/2023 15:34:56 01/25/2023 12:39:14 Acute upper respiratory infection 76428563 J06.9 Hydrate well. Use humidifier Take medication as prescribed , If getting worse come in / go to ERcovid test & flu were neg Essential hypertension 38694762 I10 Controlled [address] same with low salt dietSomewh at higher since the above issueIf no better in 2 wk come in for adjustment of medication PRN [id number] MD Sharee Harrison 14 IM [address] [facility] [place] [address] 02/08/2023 15:46:55 02/14/2023 10:09:51 Essential hypertension 98611313 I10 Somewhat higher since the above issueIf no better in 2 wk come in for adjustment of medication PRN1 3Mildly higherTake HCTZ 12.5 as prescribed with toprol as beforeLow slat diet Nasal congestion 3034318 0 R09.81 L/sideCt with cetirizine and quit smokingSte am inhalation Tobacco de pendence syndrome 86878396 F17.200 Recommend to slow down and quit at the earliest- 6 cig/day Obesity 358775661 E66.9 Recommend to loose weight with diet control and exercise. [id number] MD Sharee Harrison 14 IM [address] [facility] [place] [address] 03/23/2023 15:44:09 03/27/2023 14:29:43 Essential hypertension 54294700 I10 Somewhat higher since the above issueIf no better in 2 wk come in for adjustment of medication PRN1 3Mildly higherTake HCTZ 12.5 as prescribed with toprol as beforeLow slat dietContro lled. Ct same with low salt dietHad stroke like symptom recently Obstructiv e sleep apnea syndrome 98016813 G47.33 Under care by using the machine for awhile, machine returned, will refer back ? a new study needed.Encou rage to schedule and f/u to get full face mask CPAP back Obesity 253027596 E66.9 Recommend to loose weight with diet control and exercise. [id number] MD Sharee Harrison 14 IM [address] [facility] [place] [address] 05/08/2023 14:10:30 05/09/2023 10:23:02 Acute upper respiratory infection 61007436 J06.9 Hydrate well. Use humidifier Take medication as prescribed , If getting worse come in / go to ER Tobacco de pendence syndrome 64270858 F17.200 Recommend to slow down and quit at the earliest- 6 cig/day [id number] MD Sharee Harrison 14 IM [address] [place] [address] 06/21/2023 15:47:18 06/22/2023 15:13:56 CVA - cerebrovascular accident due to cerebral artery occlusion 548338792 I63.50 Per the recent admissionU nder care by Dr.Sherwoo vazquez 02/23/22On ly on asprin per Neuro Paresis of right lower limb [id number] 2110789 G83.11 Since CVA (dec) lot better now except climbing stairs at time difficult, mostly OK Hypercholesterolemia 136 93259 E78.00 Low cholestrol diet emphasised Ct medication as prescribed Gastroesop hageal reflux disease without esophagitis 937984305 K21.9 Loose weight , avoid soda, spicy stuff, Stop smoking Tolerating famotidine Essential hypertension 70373628 I10 02/08/23Mi ldly higherTake HCTZ 12.5 as prescribed with toprol as beforeLow slat dietContro lled. Ct same with low salt dietHad stroke like symptom recentlysomew hat higherStop HCTZ due to toe pain ?goutCt with met succinate 100 + add lisinopril 10mg daily and call back with BP in a wk Tobacco de pendence syndrome 31687324 F17.200 Recommend to slow down and quit at the earliest- 6 cig/day Obstructiv e sleep apnea syndrome 86503369 G47.33 Under care by using the machine for awhile, machine returned, will refer back ? a new study needed.Encou rage to schedule and f/u to get full face mask CPAP back 4recommend to f/u Pain of to e of left foot 7089806146 73876 M79.675 R/o goutstop HCTZTake prednisone 20mg with meal PRN [id number] MD Sharee Eddy 14 IM [address] [facility] [place] [address] 08/06/2023 15:44:27 08/13/2023 09:22:44 Essential hypertension 16768942 I10 -BP today in clinic: manual recheck: 138/80mmHg (Goal <130/80)-C ontinue current therapy: Metoprolol ER 100mg daily-Incr ease Lisinopril 20mg daily-Liz ent to call if BP remains >140/90, or if BP drops <110/70mmH g.-Trend renal function-R ecommended DASH diet-Discu ssed importance of regular exercise and/or physical activity inthe control of blood pressure.- Discussed low sodium diet w/ <2 g daily, avoidance of caffeine, appropriat e sleep hygiene and quality with >6 hours of uninterrup carmen sleep. Hyperlipidemia 88402608 E78.5 -Continue current therapy: Atorvastat in 80mg daily-Rech eva lipid panel in couple of months-Chaitanya nd LFTs-Patie nt educated on the importance of diet, exercise and medication in the management of this condition. Administra tion of tetanus vaccine 107312364 Z23 -Patient agreeable to tetanus vaccine. TRANSPLANTER ORCHID discussed risks and benefits of vaccinatio n.-TRANSPLANTER ORCHID provided Tdap care instructio ns. Upper resp iratory infection 49864622 J06.9 -Patient presentati on concerning for URI versus pneumonia. -Patient agreeable to chest x ray.-Patie nt agreeable to treatment with azithromyc in. TRANSPLANTER ORCHID advised patient to consume OTC probiotic or yogurt while on antibiotic therapy.-P atient agreeable to cough management with Tessalon Perles PRN. Right foot drop 02392796 01 05152 M21.371 -Patient reports chronic right foot drop.-Liz ent reports he would like to see neurology Tobacco user 040696887 Z 72.0 -The patient continues to use tobacco despite previous direction toquit. The patient is aware of risks of tobacco, which includes developing cancer, emphysema, and premature cardiovasc ular disease.-D christina assistance with cessation. Adult heal examination 517882085 Z00.01 The patient was counseled regarding the appropriat e use ofalcohol, screening procedures and recommende d schedule for colonoscop y, psa, cholestero l, thyroid and diabetes screening, prevention of dental and periodonta l disease, diet, regular sustained exercise for at least 30 minutes 3-4 times per week, prostate cancer screening, regular use of seat belts.Flo mmend dilated eye exam and glaucoma screening every 2 years or as [facility] CRC screening (45-75):Richa donahue 06-19-22- Osteoporos is screening: Due at 65.- Lipid screening (>45 unless additional risk factors): (11/27/22) cholestero l 115.9, triglyceri nellie 114, HDL 34.7, LDL 60.2- HIV : Declined 08/06/23- HepC: Declined 08/06/23-Eye exam: Unknown-De ntal Exam: Unknown- Immunizati ons:- Influenza: Due Fall.- Prevnar 20: Due at 65.- Tdap/Td ([id number]) : 08/06/23- Zoster (>60):Due at 60.- COVID-19: 09/03/20- AAA screening (65-75): Due at 65.- Prostate ca screening (>50 or >45 if AA, +FH; d/w patient): 0.4 (11/27/22)- Labs ordered this visit: N/A Body mass index 30+ - obesity 425870237 Z68.38 TRANSPLANTER ORCHID advised patient to follow a well balanced diet and obtain regular exercise. Informatio nal handout provided. HIV screen ing declined 1509624333 82004 Z53.20 [id number] MD Sharee Eddy 14 IM [address] [facility] [address] [place] [address] 09/25/2023 16:11:11 10/02/2023 11:00:48 Tobacco user 635990444 Z72.0 -The patient continues to use tobacco despite previous direction toquit. The patient is aware of risks of tobacco, which includes developing cancer, emphysema, and premature cardiovasc ular disease.-Owen vasquez assistance with cessation. -Patient reports he smokes 8 cigarettes per day. Patient reports history of smoking 2PPD for 5 years, then decreased to 1PPD. Patient reports he has been smoking for 35+ years. Essential hypertension 19484017 I10 -BP today in clinic: manual recheck: 137/84mmHg (Goal <130/80)-C ontinue current therapy: Metoprolol ER 100mg daily, Lisinopril 20mg daily-Niki nopril was increased to 20mg daily on 08/06/23-Pat ient to call if BP remains >140/90, or if BP drops <110/70mmH g.-Trend renal function-R ecommended DASH diet-Discu ssed importance of regular exercise and/or physical activity inthe control of blood pressure.- Discussed low sodium diet w/ <2 g daily, avoidance of caffeine, appropriat e sleep hygiene and quality with >6 hours of uninterrup carmen sleep. Hyperlipidemia 43892201 E78.5 -Stable-Li pid panel (11/27/22): cholestero l 115.9, triglyceri nellie 114, HDL 34, LDL 60.2-LDL goal <100-ASCVD risk: 23.3%-Kenney es myalgia/ar thralgia-C ontinue current therapy: Atorvastat in 80mg daily-Rech eva lipid panel in couple of months-Chaitanya nd LFTs-Patie nt educated on the importance of diet, exercise and medication in the management of this condition. Chronic sinusitis 667277 00 J32.9 -Patient presents with persistent sinusitis symptoms.- Patient agreeable to ENT referral.- Patient agreeable to symptom management with Claritin 10mg daily, and Tessalon perles 100mg TID PRN.-TRANSPLANTER ORCHID provided sinusitis care instructio ns. Obstructiv e sleep apnea syndrome 58196526 G47.33 -Patient reports previous diagnosis of QUIN.-Patie nt agreeable to pulmonolog ist referral for continued management .-Educated on risks of untreated QUIN (including heart attack or stroke) Impacted c erumen in left ear 3449920479 061948 H61.22 -Left cerumen impaction noted on exam.-Liz ent agreeable to Debrox treatment. -Plan to evaluate at patient's follow up appointmen t and consider ear irrigation if not improved. Body mass index 30+ - obesity 104547416 Z68.38 TRANSPLANTER ORCHID advised patient to follow a well balanced diet and obtain regular exercise. Informatio nal handout provided. Nicotine dependence 5629 4008 F17.228 [id number] MD Sharee Eddy 14 IM [address] [facility] [place] [address] 10/10/2023 15:46:23 11/09/2023 08:18:35 Impacted cerumen in left ear 8056957808 356130 H61.22 -Resolved- TM's clear, banuelos Essential hypertension 52742495 I10 -BP today in clinic: 155/97 mmHg(Goal <130/80)-C ontinue current therapy: Metoprolol ER 100mg daily, Lisinopril 20mg daily-Liz ent to call if BP remains >140/90, or if BP drops <110/70mmH g.-Trend renal function-R ecommended DASH diet-Discu ssed importance of regular exercise and/or physical activity in the control of blood pressure.- Discussed low sodium diet w/ <2 g daily, avoidance of caffeine, appropriat e sleep hygiene and quality with >6 hours of uninterrup carmen sleep.-Cleo barnett has been out of lisinopril . Patient to restart medication and maintain BP log.-F/u in 2-4 weeks. Body mass index 30+ - obesity 369421225 Z68.38 TRANSPLANTER ORCHID advised patient to follow a well balanced diet and obtain regular exercise. Informatio nal handout provided. [id number] MD Sharee Eddy 14 IM [address] [facility] [address] [place] [address] 10/16/2023 15:47:34 11/07/2023 08:26:46 Impacted cerumen in left ear 7923056955 429971 H61.22 -Left cerumen impaction noted on exam.-Liz ent agreeable to Debrox treatment. -Plan to evaluate at patient's follow up appointmen t and consider ear irrigation if not improved.-Res olved-Ear canal clear-TMs clear, banuelos. Essential hypertension 37055998 I10 -BP today in clinic: 147/89mmHg (Goal <130/80)-C ontinue current therapy: Metoprolol ER 100mg daily, Lisinopril 20mg daily-Liz ent to call if BP remains >140/90, or if BP drops <110/70mmH g.-Trend renal function-R ecommended DASH diet-Discu ssed importance of regular exercise and/or physical activity inthe control of blood pressure.- Discussed low sodium diet w/ <2 g daily, avoidance of caffeine, appropriat e sleep hygiene and quality with >6 hours of uninterrup carmen sleep.-BP appears to be controlled per home BP log. Plan to follow up in 3 months Body mass index 30+ - obesity 870581311 Z68.38 TRANSPLANTER ORCHID advised patient to follow a well balanced diet and obtain regular exercise. Informatio nal handout provided. [id number] MD Sharee MUNSON 14 IM [address] [facility] [address] [place] [address] 12/18/2023 16:43:02 12/29/2023 09:51:24 Essential hypertension 10222977 I10 Blood pressure elevated to 166/91 in the office, previously elevated to 191/102 at home per patient. No current symptoms including headache, dizziness, changes in vision, chest pain, shortness of breath, palpitatio ns. Heart rate and oxygen saturation WNL. Concern for increased heart strain given acutely elevated blood pressure. No prescripti on, over-the-c ounter, or recreation al drugs identified that may contribute to elevated blood pressure. Possibly elevated due to recent increase in work, seasonal allergies, or viral illness. - Increase lisinopril from 20 mg daily to 40 mg daily- EKG to rule out arrhythmia and heart strain- Patient advised to continue to keep home blood pressure log- Return precaution s include blood pressure elevated over 180 systolic, new headache, changes in vision, dizziness, chest pain- Increase hydration and rest for treatment of potential viral illness, can consider home COVID test- Return to office in 1 week for blood pressure management [id number] MD Sharee Eddy 14 IM [address] [facility] [address] [place] [address] 01/03/2024 15:53:47 01/29/2024 13:27:27 Essential hypertension 47053255 I10 -BP today in clinic: 163/82mmHg (Goal <130/80)-C ontinue current therapy: Metoprolol ER 100mg daily, Lisinopril 40mg daily-Star t hydrochlor othiazide 12.5mg daily-Liz ent to call if BP remains >140/90, or if BP drops <110/70mmH g.-Trend renal function-R ecommended DASH diet-Discu ssed importance of regular exercise and/or physical activity inthe control of blood pressure.- Discussed low sodium diet w/ <2 g daily, avoidance of caffeine, appropriat e sleep hygiene and quality with >6 hours of uninterrup carmen sleep.-Thea ck CMP-ER precaution s advised Body mass index 30+ - obesity 402323800 Z68.38 TRANSPLANTER ORCHID advised patient to follow a well balanced diet and obtain regular exercise. Informatio nal handout provided. Long-term drug therapy 205016433 Z79.899 Hyperlipidemia 65203587 E78.5 -Stable-Li pid panel (11/27/22): cholestero l 115.9, triglyceri nellie 114, HDL 34, LDL 60.2-LDL goal <100-ASCVD risk: 23.3%-Kenney es myalgia/ar thralgia-C ontinue current therapy: Atorvastat in 80mg daily-Rech eva lipid panel in couple of months-Chaitanya nd LFTs-Patie nt educated on the importance of diet, exercise and medication in the management of this condition. Prediabetes 685808375 R7 3.03 -Recheck A1c today, adjust medication therapy based on results-No medication therapy:-R ecommended diabetic diet-Educa carmen to check feet daily. Depression screening 171 443424 Z13.31 PHQ-9 negative-P atient reports mood is stable HIV screen ing declined 7290066568 54846 Z53.20 [id number] Ron Ramires MD Parker 14 IM [address] [facility] [address] [place] [address] 01/21/2024 15:53:18 01/30/2024 14:12:24 Essential hypertension 88233185 I10 -BP today in clinic: 122/76mmHg (Goal <130/80)-C ontinue current therapy: Metoprolol ER 100mg daily, Lisinopril 40mg daily, hydrochlor othiazide 12.5mg daily-Liz ent to call if BP remains >140/90, or if BP drops <110/70mmH g.-Trend renal function-R ecommended DASH diet-Discu ssed importance of regular exercise and/or physical activity inthe control of blood pressure.- Discussed low sodium diet w/ <2 g daily, avoidance of caffeine, appropriat e sleep hygiene and quality with >6 hours of uninterrup carmen sleep.-BP appears to be stabilizin g per home BP log. Plan to follow up in 1 month Body mass index 30+ - obesity 441012190 Z68.38 TRANSPLANTER ORCHID advised patient to follow a well balanced diet and obtain regular exercise. Informatio nal handout provided. Hyperlipidemia 78988365 E78.5 -Stable-Li pid panel (01/03/24): cholestero l 113, triglyceri nellie 99, HDL 38, LDL 56-LDL goal <100-ASCVD risk: N/A-Denies myalgia/ar thralgia-C ontinue current therapy: Atorvastat in 80mg daily-Rech eva lipid panel in couple of months-Chaitanya nd LFTs-Patie nt educated on the importance of diet, exercise and medication in the management of this condition. HIV screen ing declined 5179122430 61864 Z53.20 Intracranial aneurysm 12 9914048 I67.1 -Carotid CTA (01/03/24): no carotid or vertebral stenosis-I ntracrania l CTA (01/03/24): No large vessel occlusion. 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.-Aki glez agreeable to neurosurge on referral-E R precaution s advised Seasonal a llergic rhinitis 836170550 J30.2 -Patient reports symptoms are controlled with current therapy-Aki glez requesting medication renewal [id number] Ron Ramires MD Parker 14 IM [address] [facility] [address] [place] [address] 02/18/2024 15:49:59 03/05/2024 15:56:37 HIV screening declined 5689265588 62765 Z53.20 Essential hypertension 82380519 I10 -Controlle d-BP today in clinic: 108/70mmHg (Goal <130/80)-C ontinue current therapy: Metoprolol ER 100mg daily, Lisinopril 40mg daily, hydrochlor othiazide 12.5mg daily-Liz ent to call if BP remains >140/90, or if BP drops <110/70mmH g.-Trend renal function-R ecommended DASH diet-Discu ssed importance of regular exercise and/or physical activity inthe control of blood pressure.- Discussed low sodium diet w/ <2 g daily, avoidance of caffeine, appropriat e sleep hygiene and quality with >6 hours of uninterrup carmen sleep.- Plan to follow up in 3 month Body mass index 30+ - obesity 200101098 Z68.38 TRANSPLANTER ORCHID advised patient to follow a well balanced diet and obtain regular exercise. Informatio nal handout provided. Pain of left heel 116152 5966 924882 M79.672 -Erythema noted to heel joint-Liz ent denies any known trauma to his left foot-Patie nt reports history of gout-Patie nt reports occasional beer use and eats red meat-Patie nt reports history of plantar fascitis. Patient is also breaking in new tennis shoes-[facility] k foot x ray-Check uric acid level-Liz ent agreeable to treatment with Naproxen 500mg BID for 10 days. TRANSPLANTER ORCHID discussed risks of NSAID use.-Patie nt to follow up in clinic if symptoms worsen or do not improve. Screening for malignant neoplasm of prostate 212918024 Z12.5 -Check PSA Vitamin D deficiency 347 33745 E55.9 -Recommend taking vitamin D supplement cholecalci ferol 1000 internatio nal units by mouth daily-Flo mmended foods high in vitamin D including: Milk, fortified orange juice, yogurt, salmon, canned tuna, cod liver oil and cereals with vitamin D added-Malaika tor vitamin d levels-[facility] ck vitmain B12 [id number] MD Sharee Eddy 14 IM [address] [facility] [address] [place] [address] 04/14/2024 16:08:16 04/17/2024 13:19:38 HIV screening declined 0909563131 18197 Z53.20 Viral uppe r respiratory tract infection 797282781 J06.9 No recent fever or chills.Neg strep and viral panelRecom mend conservati ve management of symptoms. Acute sinusitis 97293042 J01.90 Most likely viral rhinosinus itis, which has persisted for 8 days now.Will treat with Augmentin twice daily for 7 daysEncour age Tylenol/Ib uprofen as needed for discomfort Encourage lots of fluids and rest.Follo w up with PCP as needed. [id number] MD Sharee MUNSON 14 IM [address] [facility] [address] [place] [address] 04/22/2024 14:49:41 04/28/2024 15:58:36 Wheezing 00518646 R06.2 Presenting with expiratory wheezing bilateral. History of smoking and bronchitis .Recommend PFT at future date to confirm diagnosis. Will do trial of albuterol. Chronic sinusitis 561183 00 J32.9 S/p Augmentin x 7 days.Still having symptoms of nasal congestion , rhinorrhea , cough productive of sputum.Swo llen nasal turbinate on exam.Recom mended continue using Flonase after rinsing with normal saline instructed on proper technique patient reported understand ing. Can use humidifier and elevate head of bed.Add cetirizine medication regimen.Fo llow-up in 6 weeks with PCP. Obesity 663772968 E66.9 -Reduce drinks with high sugar like soda or juice, increase water intake. Decrease alcohol consumptio ns.-Increa se fresh fruits and vegetables to diet.-Eat only when you are hungry.-Re duce portions and limit snacks.-Re commend continued lifestyle modificati ons & exercise. [id number] Ron Ramires MD [facility] (Adult Med) [address] [place] [address] 08/05/2024 16:05:31 08/14/2024 15:52:47 Abdominal pain [id number] R10.9 -patient reports right lower quadrant tenderness with light palpation. Patient complainin g of persistent pain after palpation- differenti al diagnoses include appendicit is, gastroente ritis-liz ent would like to seek care in ED for further evaluation -TRANSPLANTER ORCHID ordering abdominal ultrasound just in case the patient was turned away from the ED-TRANSPLANTER ORCHID also ordering simethicon e 125 mg q.6 hours PRN-TRANSPLANTER ORCHID recommende d following a liquid diet-ER precaution s advised Essential hypertension [id number] I10 -Controlle d-BP today in clinic: 102/68mmHg (Goal <130/80)-C ontinue current therapy: Metoprolol ER [...] carmen sleep.- Plan to follow up in 3 month Prediabetes [id number] R7 3.03 575031 -Recheck A1c today, adjust medication therapy based on results-No medication therapy:-R ecommended diabetic diet-Educa carmen to check feet daily. [id number] Ron Ramires MD [facility] (Adult [facility]) [address] [place] [address] 12/01/2024 15:24:13 12/15/2024 11:17:16 Essential hypertension [id number] I10 -Controlle d-BP today in clinic: 137/80mmHg (Goal <130/80)-C ontinue current therapy: Metoprolol ER [...] Plan to follow up in 6 month Mixed hyperlipidemia 267 125700 E78.2 74071 -Stable-Li pid panel (08/05/24)-L DL goal <100-ASCVD risk: N/A-Denies myalgia/ar thralgia-C ontinue current therapy: Atorvastat in 80mg daily-Rech eva lipid panel in couple of months-Chaitanya nd LFTs-Patie nt educated on the importance of diet, exercise and medication in the management of this condition. Anemia 016703100 D64.9 79950029 -Last Hgb/Hgb levels: 11.6/34.4 (08/07/24)- Recheck CBC and iron panel-Plan of care pending results Vitamin D deficiency 347 83149 E55.9 69627 -Recommend taking vitamin D supplement cholecalci ferol 1000 internatio nal units by mouth daily-Flo mmended foods high in vitamin D including: Milk, fortified orange juice, yogurt, salmon, canned tuna, cod liver oil and cereals with vitamin D added-Malaika tor vitamin d levels-Thea ck vitmain B12 Long-term current use of drug therapy [id number] Z79.899 73078938 Screening for malignant neoplasm of prostate 664639815 Z12.5 394745 -Check PSA Prediabetes 490680991 R7 3.03 138231 -Recheck A1c today-No medication therapy-Re commended diabetic diet-Educa carmen to check feet daily. Diverticular disease 397 738308 K57.90 08929 -Denies having any recent flares-Sukhdeep rosa ns provided. [id number] MD [facility] (Adult Med) [address] [place] [address] 12/24/2024 15:49:11 12/30/2024 18:05:12 Wheezing 17774204 R06.2 -Patient reports symptoms are controlled with current therapy-Co ntinue current therapy: Albuterol PRN Cough 00096853 R05.9 1403722244 -Negative for influenza and covid Vesicular eczema 9423470 08 L30.1 71944545 - Dry flaky rash noted to bilateral hands. Small blisters noted in patient's pictures consistent with vesicular eczema- patient agreeable to treatment with triamcinol one cream b.i.d. for 1-2 weeks. TRANSPLANTER ORCHID discussed risks of prolonged steroid cream use including thinning of skin- patient to follow up in clinic if symptoms worsen or do not improve Sinusitis 13664192 J32.9 942231122 - patient presentati on consistent with acute sinusitis. patient has history of chronic sinus infections .- Patient agreeable to treatment with amoxicilli n 875 mg b.i.d. for 7 days. TRANSPLANTER ORCHID advised patient to consume OTC probiotic or yogurt while on antibiotic therapy.- Patient agreeable to cough management with Tessalon Perles 100 mg TID PRN- patient to follow up in clinic if symptoms worsen or do not improve- ER precaution s advised [id number] MD [facility] (Adult Med) [address] [place] [address] 02/24/2025 15:54:48 02/25/2025 13:30:58 Acute left otitis media [id number] H66.92 [id number] follow up in a month [id number] MD [facility] (Adult Med) [address] [place] [address] 03/03/2025 15:55:32 03/05/2025 12:06:34 Essential hypertension 56735690 I10 -Controlle d-BP today in clinic: 139/84mmHg [...] and quality with >6 hours of uninterrup caremn sleep.- Plan to follow up in 6 month Low back pain 848497508 M54.50 725747 -Denies having any acute trauma-Den ies any [...] re instructio ns provided. Intracranial aneurysm 12 3083450 I67.1 805630 -Carotid CTA (01/03/24): no carotid or vertebral [...] insurance. New referral placed.-ER precaution s advised [id number] MD [facility] (Adult Med) [address] [place] [address] 03/24/2025 16:01:12 03/25/2025 12:09:52 Otitis externa 5360376 H60.8X2 4101099 keep ear dry [id number] Amos Jones MD [facility] [place] [facility] [address] [place] [address] 04/17/2025 13:30:38 04/20/2025 14:29:40 Obese class II [id number] 83290 E66.812 E66.3 2234908713 Lifestyle modificati ons discussed. Essential hypertension 06907516 I10 80561 Currently maintained on lisinopril 40, HCTZ 25, metoprolol succinate 100. Reports recent improvemen t in blood pressure readings. Prescribed clonidine 0.1 mg prn to be taken for systolic over 160 and diastolic over 100. We will plan gradual lowering of blood pressure given episodes of dizziness to prevent syncopal episode. Reinforced need for compliance with medical therapy and home blood pressure monitoring . Will need low-sodium diet, ambulatory blood pressure monitoring and reaching out to care team if blood pressure numbers remain suboptimal (under 100/60, over 140/90) or if symptoms. Coronary arteriosclerosis 08208460 I25.118 I27.20 Z86.73 99602233 Maintained on aspirin 81 mg daily along with the atorvastat in 80 mg daily with previous CVA. In light of non postural dizziness with previous history of CVA, obtain extended cardiac monitoring to assess for atrial fibrillati on and arrhythmog enic etiology of symptoms. Discussed hydration, postural precaution s. Reports inability to exercise secondary to profound back and knee pain with orthopedic limitation s. In light of coronary calcificat ion noted on LDCT chest, obtain pharmacolo gic nuclear stress test. ER precaution s in the interim discussed. Pulmonary hypertension 28892575 I27.20 4052 Echocardio gram 2023 with no bubble study. Recent LDCT chest with findings of cardiomega ly. With increasing exertional dyspnea, findings of cardiomega ly with history of CVA, obtain echocardio gram with bubble study to assess for structural / valvular heart disease and rule out interatria l shunting. Smoker 62283648 F17.200 866125 Discussed cardiovasc ular risks of ongoing nicotine use. Reinforced importance of complete nicotine cessation for cardiovasc ular risk reduction amongst other health benefits. Currently declines need for pharmacoth erapy. Encouraged ongoing discussion s with care team including PCP for additional resources to achieve the goal of complete nicotine cessation. We will request a routine follow-up after above-ment ioned cardiac testing for ongoing monitoring of above-ment ioned cardiac conditions . Patient has been made aware to contact us sooner if any cardiac issues arise in the interim. On behalf of the Cardiology Services at [facility] , we appreciate the opportunit y to participat e in the care of your patient. Please feel free to reach out to us for any questions regarding your patient's cardiac care. Amos Jones MD, [facility] , Cardiology Ph: [phone]: Health Concerns Section Related Observation LastModified by Organization Detai ls LastModified Time None Recorded Concern Status LastModified by Organization Details LastModified Time None Recorded Advance Directives Directive N: Payers Insurance Date Sequence Insurance Name Policy Number Policy Johns Covered Member ID Johns Member ID Guarantor Name 04/10/2025 1 [place] [id number] Ramon Valenzuela [id number] Ramon Valenzuela 01/04/2021 SLIDING FEE SCHEDULE - DISCOUNT Ramon Valenzuela 04/17/2025 1 [facility] [place] Ramon Valenzuela [id number] Ramon Valenzuela 01/21/2024 SLIDING FEE SCHEDULE - DISCOUNT Ramon Valenzuela 09/27/2021 SLIDING FEE SCHEDULE - DISCOUNT Ramon Valenzuela 04/10/2025 1 [facility] ([facility] ILONEX Ramon Valenzuela [id number] Ramon Valenzuela 06/26/2019 SLIDING FEE SCHEDULE - DISCOUNT Ramon Valenzuela 05/03/2020 2 *SELF PAY* Sirena delfina Valenzuela 11/18/2019 SLIDING FEE SCHEDULE - DISCOUNT Ramon Valenzuela 11/18/2019 SLIDING FEE SCHEDULE - DISCOUNT Ramon Valenzuela 04/10/2025 1 [place] [id number] Ramon Valenzuela [id number] Ramon Valenzuela 11/02/2022 SLIDING FEE SCHEDULE - DISCOUNT Ramon Valenzuela 09/02/2020 1 [employer] (POS II) [id number] Bailey Andrae Valenzuela [id number] Ramon Valenzuela 01/21/2024 SLIDING FEE SCHEDULE - DISCOUNT Ramon Valenzuela 10/10/2023 SLIDING FEE SCHEDULE - DISCOUNT Ramon Valenzuela 04/10/2025 1 [facility] - DOS PRIOR TO 2020 (MEDICAID REPLACEMENT - HMO) Ramon Valenzuela [id number] Ramon Valenzuela 05/04/2021 1 *SELF PAY* Sirena Valenzuela 05/04/2021 1 *SELF PAY* Sirena Valenzuela 08/06/2023 SLIDING FEE SCHEDULE - DISCOUNT Ramon Valenzuela 03/23/2023 SLIDING FEE SCHEDULE - DISCOUNT Ramon Valenzuela 08/06/2023 SLIDING FEE SCHEDULE - DISCOUNT Ramon Valenzuela 02/08/2023 SLIDING FEE SCHEDULE - DISCOUNT Ramon Valenzuela 01/22/2024 2 *SELF PAY* Sirena Valenzuela 04/10/[address] [facility] - BLUE CHOICE (PPO) [id number] Ramon Valenzuela [id number] Ramon Valenzuela 04/10/2025 1 [place] [employer] [place] PUBLIC [employer] Ramon Valenzuela [id number] Ramon Valenzuela 12/28/2020 1 *SELF PAY* Sirena Valenzuela Notes Date Note Type Note Provider Name and Address Organization Details Recorded Time 02/24/2025 text/html ROS as noted in the HPI Pt complaining of blockage of his left ear for the last month. He has been treated with antibiotics without relief. He has nasal congestion as well. Zarina Carrillo MD Attn: [address] [place], [address], [facility] 02/24/2025 16:14:04 03/03/2025 text/html Patient is a 59 year old male presenting to the clinic for 3 month follow up. Patient's past medical history includes: CVA, hyperlipidemia, hypertension, QUIN, tobacco user, alcohol use, allergic rhinitis, diverticulitis, and GERD. -Patient reports he has been having right sided lower back pain for the past week. Reports icy hot has helped. 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 OMID RAYA Attn: [address] [place], [address], [facility] 03/03/2025 16:48:04 03/24/2025 text/html ROS as noted in the HPI Pt complaining of blockage of his left ear with drainage. He has been on antibiotics without relief Zarina Carrillo MD Attn: [address] [facility], [place], [address], [facility] 03/24/2025 16:32:46 04/10/2025 text/html Patient is a 59 year old male presenting to the clinic for ER follow up. Patient's past medical history includes: CVA, hyperlipidemia, hypertension, QUIN, tobacco user, alcohol use, allergic rhinitis, diverticulitis, and GERD. -BP today in clinic: 113/75mmHg Not Available Not Available Not Available 04/17/2025 text/html ROS as noted in the HPI I had the pleasure of seeing this patient as a new consultation from Bernadine Anton DNP for recommendations regarding evaluation and management of cardiac etiologies of chest pain, dyspnea and labile hypertension 59-year-old with hypertension, mixed hyperlipidemia, history of CVA, obesity, family history of CAD and nicotine use. During recent LDCT chest was found to have cardiomegaly with dilated pulmonary artery suggestive of pulmonary hypertension. Reports increasing exertional dyspnea with NYHA class 2-3 symptoms. Reports profound back only pain which limits his activity. His blood pressures have been labile with episodes of dizziness which are not always postural and associated with hypotension rather than hypertension. He denies any symptom complex suggestive of QUIN at this juncture. He is not compliant with a low-sodium diet. He denies any syncopal episodes. Amos Jones MD Attn: [address] [facility], [place], [address], [facility] 04/20/2025 09:32:14
--- OUTSIDE RECORDS SUMMARY | 2025-04-21 09:29 | XMS_ITS | Clinical Summary ---
Author Organization [facility] Address [address] [place] [address] Care Team Providers Care Audiovisual Equipment Operator Name Role Phone Bernadine Anton COLOR CHECKER Primary Care Provider Allergies No known active allergies Medications metoprolol XL (TOPROL-XL) 100 mg 24 hr tablet Take 1 tablet (100 mg total) by mouth daily 2 Active atorvastatin (LIPITOR) 80 mg tablet Take 1 tablet (80 mg total) by mouth daily Active aspirin 81 mg chewable tablet Take 1 tablet (81 mg total) by mouth daily Active hydrocortisone 2.5 % cream Active famotidine (PEPCID) 20 mg tablet Take 1 tablet (20 mg total) by mouth 2 (two) times a day 2 Active fluticasone propionate (FLONASE) 50 mcg/actuation nasal spray SHAKE LIQUID AND USE 1 SPRAY IN EACH NOSTRIL EVERY DAY NEEDED Active lisinopriL (PRINIVIL,ZESTRIL ) 20 mg tablet Take 1 tablet (20 mg total) by mouth daily 30 tablet 11 4 Active albuterol HFA (PROVENTIL HFA,VENTOLIN HFA,PROAIR HFA) 90 mcg/actuation inhalerIndication s:Chronic obstructive pulmonary disease with acute exacerbation (HCC) Inhale 2 puffs every 6 (six) hours as needed for wheezing 1 each 11 4 Active Active Problems Problem Noted Date Diagnosed Date Encounter to establish care 08/27/2023 Assessment & Plan (08/27/2023 5:36 PM CDT): New patient; reviewed medical and surgical history. Recommended preventive screenings and vaccinations. -Patient is due for screening colonoscopy. -CT lung cancer screening ordered -30 pack year smoking history -social EtOH use, no drug use Anal warts 08/27/2023 Assessment & Plan (08/27/2023 5:38 PM CDT): Per chart review patient has had a rectal/anal warts present for the past 10 years. Discussed my concern for increased risk of rectal cancer with HPV/anal warts. Referral placed to GI for further evaluation and discussion regarding treatment options. Patient denies any change in stool patterns or unintentional weight loss. Single episode of bleeding per rectum about 3 weeks ago, unsure if he also has hemorrhoids. No additional bleeding. No black/tarry stools Encounter for colorectal cancer screening 2023 Chronic obstructive pulmonar y disease with acute exacerbation 08/27/2023 Assessment & Plan (08/27/2023 5:44 PM CDT): Faint wheezing on exam cleared with cough. Recommended use of albuterol inhaler 1-2 puffs every 4-6 hours for the next few days and then p.r.n.. Stressed smoking cessation. Prescribed prednisone taper and instructed patient to complete full 10 day course of Augmentin. Will continue to monitor. Chronic maxillary sinusitis 08/27/2023 Assessment & Plan (08/27/2023 5:48 PM CDT): Reviewed previous imaging noting mucous retention cyst of right maxillary sinus. Patient is currently completing course of Augmentin. Encouraged him to use nasal irrigation rinses daily followed by Flonase. Discussed referral to ENT, will re-evaluate at follow-up Prediabetes 03/14/2023 Assessment & Plan (08/27/2023 4:51 PM CDT): Lab Results Component Value Date HGBA1C 5.7 (H) 03/14/2023 HGBA1C 5.8 (H) 06/21/2019 Stroke-like episode 03/13/2023 QUIN (obstructive sleep apnea) 03/13/2023 Assessment & Plan (08/27/2023 5:36 PM CDT): Patient presents today for face to face follow-up on CPAP usage. Patient is using CPAP on a nightly basis with shown improvement in QUIN symptoms. Patient is using CPAP for 8 hours nightly. He states that he misplaced the cord to his machine during recent move, has been without his machine for the past 1-2 months. Encouraged patient to contact [facility]. Mild intermittent asthma 03/13/2023 Chronic low back pain 03/13/2023 Toothache 03/13/2023 Dyslipidemia 03/13/2023 Assessment & Plan (08/27/2023 5:36 PM CDT): Continue Atorvastatin 80 mg daily. Will check labs today and notify patient of results. LDL goal less than 70. Encouraged smoking cessation. Tobacco dependence 03/13/2023 Late, effect, cerebrovascular disease 07/25/2019 Perioral numbness 06/22/2019 Right sided weakness 06/22/2019 Class 2 severe obesity due t o excess calories with serious comorbidity and body mass index (BMI) of 38.0 to 38.9 in adult 06/22/2019 Assessment & Plan (08/27/2023 5:35 PM CDT): Discussed healthy diet and importance of regular physical activity. Convulsions 06/21/2019 History of CVA (cerebrovascular accident) 2019 Assessment & Plan (08/27/2023 5:42 PM CDT): 12/2021, previously on DA PT. Now taking aspirin and high-intensity statin. Some residual right-sided weakness. Blood pressure today is well controlled, continue to monitor closely. Stressed the need for smoking cessation and reducing risk factors. Essential hypertension 06/20/2019 Assessment & Plan (08/27/2023 5:46 PM CDT): Currently taking lisinopril 20 mg daily and metoprolol 100 mg daily. Periodically checking blood pressure at home, readings have been about 140 systolic over the past few weeks during current illness. No chest pain, shortness and breath or palpitations. No lower extremity swelling. Patient had x-ray earlier this month with previous PCP, chest x-ray noting cardiomegaly. PCP ordered echocardiogram which is scheduled for early next month. Prior echo 02/2023, normal EF, normal LV systolic function. Tobacco dependence 06/20/2019 Assessment & Plan (08/27/2023 5:35 PM CDT): [id number] years. Agreeable to ct lung cancer screening. Encouraged smoking cessation. Screening for malignant neoplasm of colon 2018 Overview (12/18/2018): Added automatically from request for surgery [id number] Resolved Problems Problem Noted Date Diagnosed Date Resolved Date Screen for colon cancer 06/17/201807/30 Overview (06/17/2018): Added automatically from request for surgery [id number] Immunizations Immunization Administration Dates Next Due Influenza, Quadrivalent, Spl it, Intramuscular 04/17/2022,02/04/2019,03/12/2018 Influenza, Unspecified 08/27/2023(Deferr ed: Patient Refused),01/28/2023(Deferred: Patient Refused) Pfizer SARS-CoV-2 Monovalent Vaccination (12+ Yrs) PURPLE 09/03/2020 Tdap 08/06/2023 Medical History Medical History Date Comments Hypertension TIA (transient ischemic attack) TIA in 2013 and ? in 2018-may have been a seizure Seizure (HCC) Stroke (HCC) Asthma Chronic obstructive pulmonar y disease with acute exacerbation (HCC) 08/27/2023 Family History Medical History Relation Name Comments Stroke Maternal Grandmother Hypertension Mother Migraines Mother Migraines Sister Relation Name Status Comments Father Maternal Grandmother Mother Alive Sister Social History Tobacco Use Types Packs/Day Years Used Date Smoking Tobacco: Every Day Cigarettes 1 30 Smokeless Tobacco: Never Tobacco Cessation:Ready to Q uit: Not Asked; Counseling Given: Not Answered Alcohol Use Standard Drinks/Week Comments No 0 (1 standard drink = 0.6 oz pur e alcohol) AUDIT-C Answer Date Recorded Q1: How often do you have a drink containing alc ohol? Monthly or less 03/13/2023 Q2: How many drinks containi ng alcohol do you have on a typical day when you are drinking? 1 or 2 03/13/2023 Q3: How often do you have si x or more drinks on one occasion? Never 03/13/2023 PHQ-2 Answer Date Recorded PHQ-2 Total Score (If total score is 3 or more points, staff should administer the PHQ-9) 0 08/27/2023 Personal Safety Answer Date Recorded Have you ever been in or are you currently in a harmful physical or emotional relationship or is someone making you feel afraid or unsafe? 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 [employer] Gender Identity Not on file Sexual Orientation Not on file Last Filed Vital Signs Vital Sign Reading Time Taken Comments Blood Pressure 148/72 01/09/2024 3:40 PM CDT Pulse 69 01/09/2024 3:40 PM CDT Temperature 36.4 C (97.6 F) 01/09/2024 3:40 PM CDT Respiratory Rate 16 01/09/2024 3:40 PM CDT Oxygen Saturation 97% 01/09/2024 3:40 PM CDT Inhaled Oxygen Concentration - - Weight 126.6 kg (279 lb) 03/01/2024 12:43 PM CDT Height 182.9 cm (6') 03/01/2024 12:43 PM CDT Body Mass Index 37.84 03/01/2024 12:43 PM CDT Plan of Treatment Health Maintenance Due Date Last Done Comments Colon Cancer Screening-Colonoscopy 1967 Hepatitis C Screening 1965 Prostate Cancer Screening-PSA 1967 Hepatitis B Screening 09/10/1985 Regular Well Visit/Exam 18-64 09/10/1985 Pneumococcal vaccine <65 (1 of 2 - PCV) 09/10/1986 Zoster Vaccine (1 of 2) 09/10/2017 Depression Screening 08/26/2024 08/27/2023 Covid-19 Vaccine ( season) 12/29/202410/2020, 09/03/2020 Influenza Vaccine (#1) 2024 2, 02/04/2019, 03/12/2018 DTaP/Tdap/Td Vaccine (2 - Td or Tdap) 08/05/203311/2023 Insurance [place] [facility] Advance Directives For more information, please contact: [phone] * Full Code (Latest Code Status on File) Date Activated Date Inactivated Comments 03/13/2023 2:25 PM 03/14/2023 11:23 PM * Full Code Date Activated Date Inactivated Comments 06/20/2019 8:45 PM 06/24/2019 6:28 PM Care Teams Audiovisual Equipment Operator Relationship Specialty Start Date End Date Bernadine Anton NP PCP - General Nurse Practitioner 02/14/24
--- OUTSIDE RECORDS SUMMARY | 2025-04-21 09:29 | XMS_ITS | Clinical Summary ---
Author Organization [facility] Address [address] [place] [address] Care Team Providers Care Varnisher Plasticoater Name Role Phone Bernadine Anton Primary Care Provider [phone] Source Comments [facility],non-owned Affiliates and Associated Physician Practices is amultiple site organization consisting of ambulatory clinics and hospital sitesin [place], [place], [place] and [place]. This disclosure is being madepursuant to the Care Everywhere program and may not contain all information available regarding this patient. Last updated 18.[facility] Allergies No known active allergies Medications * Be aware that medications may not be up to date on this document. Alwaysverify current medications with the patient. aspirin (Aspirin) 81 MG chew tablet Take 1 (one) tablet by mouth once daily Active fluticasone propionate (Flonase) 50 MCG/ACT nasal spray SHAKE LIQUID AND USE 1 SPRAY IN EACH NOSTRIL EVERY DAY NEEDED Active atorvastatin (Lipitor) 80 MG tablet TAKE 1 TABLET BY MOUTH EVERY DAY AT DINNER Active metoprolol succinate XL 24hr (Toprol XL) 100 MG tablet Take 1 (one) tablet by mouth once daily 01/18/2024 Active hydroCHLOROthia zide 12.5 MG Take 1 (one) tablet by mouth every morning 01/21/2024 Active lisinopril (Prinivil; Zestril) 10 MG tablet Take 1 (one) tablet by mouth once daily 06/21/2023 Active Active Problems Problem Noted Date Diagnosed Date Dyslipidemia 03/13/2023 QUIN (obstructive sleep apnea) 03/13/2023 Ischemic cerebrovascular accident (CVA) 09/25/20 22 Tobacco dependence 06/20/2019 TIA (transient ischemic attack) 01/31/2019 Essential hypertension 01/30/2019 Social History Tobacco Use Types Packs/Day Years Used Date Smoking Tobacco: Every Day Cigarettes Smokeless Tobacco: Never Tobacco Cessation:Ready to Q uit: Not Asked; Counseling Given: Not Answered Sex and Gender Information Value Date Recorded Sex Assigned at Not on file Legal Sex Male 7:52 AM CDT Gender Identity Not on file Sexual Orientation Not on file Last Filed Vital Signs Vital Sign Reading Time Taken Comments Blood Pressure 132/83 03/18/2024 1:53 PM [employer]SVERSE [employer]BD[employer]INAL MUSCLE NURSE Pulse 75 03/18/2024 1:53 PM TRANSVERSE ABDOMINAL MUSCLE NURSE Temperature 36.8 C (98.3 F) 03/18/2024 1:53 PM TRANSVERSE ABDOMINAL MUSCLE NURSE Respiratory Rate - - Oxygen Saturation 98% 03/18/2024 1:53 PM TRANSVERSE ABDOMINAL MUSCLE NURSE Inhaled Oxygen Concentration - - Weight 127 kg (280 lb) 03/18/2024 1:53 PM TRANSVERSE ABDOMINAL MUSCLE NURSE Height 182.9 cm (6') 03/18/2024 1:53 PM TRANSVERSE ABDOMINAL MUSCLE NURSE Body Mass Index 37.97 03/18/2024 1:53 PM TRANSVERSE ABDOMINAL MUSCLE NURSE Plan of Treatment Health Maintenance Due Date Last Done Comments COLON MONITORING 1967 COLONOSCOPY - COLON CA SCREENING 1967 CT COLONOGRAPHY - COLON CA SCREENING 1967 FIT - COLON CA SCREENING 1967 FLEX SIG - COLON CA SCREENING 1967 HIV SCREENING 09/10/1982 HEPATITIS C SCREENING 09/06/1985 DTAP/TDAP/TD VACCINES (1 - Tdap) 09/10/1986 HEPATITIS B VACCINE (1 of 3 - 19+ 3-dose series) 09/10/1986 PNEUMOCOCCAL VACCINE 50+ (1 of 2 - PCV) 09/10/1986 ZOSTER VACCINE (1 of 2) 09/10/2017 SCREENING FOR DIABETES 03/18/2024 DEPRESSION SCREENING 04/30/2024 COVID-19 VACCINE (2 - 2024-2 6 season) 2024 09/03/2020 INFLUENZA VACCINE (#1) 2024 2, 02/04/2019, 03/12/2018 COLOGUARD (AGES 45-75) - COL ON CA SCREENING 06/19/2025 06/19/2022 Colorectal Cancer Screening 06/19/2025 HIB VACCINE Aged Out No longer eligi ble based on patient's age to complete this topic HPV VACCINE Aged Out No longer eligi ble based on patient's age to complete this topic MENINGOCOCCAL (Group B) VACCINE SHARED DECISION-MAKING Aged Out No longer eligible based on patient's age to complete this topic MENINGOCOCCAL GROUPS A/C/Y/W VACCINE Aged Out No longer eligible b ased on patient's age to complete this topic Insurance [facility] Care Teams Varnisher Plasticoater Relationship Specialty Start Date End Date Bernadine Anton [address] [id number] PCP - General 02/26/24
--- OUTSIDE RECORDS SUMMARY | 2025-04-21 09:29 | XMS_ITS | Continuity of Care Document ---
Author Organization [facility], [facility] Address [address] [place] [id number] Care Team Providers Care Stave Planer Tender Name Role Phone DARLIN DEJESUS Sleep Medicine ZARINA MCHUGH Neurologist BERNADINE [...] Not available Lab None recorde d. Referral None recorde d. Procedures None recorde d. Surgeries None recorde d. Imaging electro cardiog tana 2024 025 [email or web address] In-Office Order, Internal Use Only DO Not Attach Compendium DO Not Attach Compendium, Do Not Delete/merge, [id number] 04/17/2025 14:00:08 pharmac ologic nuclear stress test - Pharmac ologic stress test 2024 025 [facility], [address], [address], [place], [address], 04/17/2025 14:05:37 US, echocar diogram , transth oracic, complet e - Echo with bubble study 2024 025 [facility], [address], [address], [place], [address], 04/17/2025 14:05:37 Medication Orders clonidi ne HCl 0.1 mg tablet 2024 025 [id number], [address], [place], [id number], 04/17/2025 15:14:02 Patient TargetsNo targets recorded. Patient Instructions Encounter Date Encounter Id Patient Instructions Last Modified By Organization Details Last Modified Time 04/17/2025 [id number] A healthy lifestyle: care instructions [email or web address] Not available 04/17/2025 14:00:08 Quitting Tobacco : Care Instructions [email or web address] Not available 04/20/2025 09:31:05 Reason for Referral None Reported. Results Created Date Observation Date Name Description Value Unit Range Abnormal Flag Note LastModifiedBy Organization Detail LastModifiedTime 04/07/2004/07/2025 CBC w/ auto diff WBC, auto, blood [...] 36g/dL Not Available Not Available 04/07/2025 22:08:16 04/07/2004/07/2025 CBC w/ auto diff platelet count, blood [...] mcL. Not Available Not Available 04/07/2025 22:08:16 12/0904/07/2025 CBC w/ auto diff nucleated erythrocytes /100 leukocytes, ratio, blood (obs) 0 Not Available Not Available 12/2024 22:08:16 04/07/2004/07/2025 CBC w/ auto diff lab interpretati on Abnorm al Not Available Not Available 22:08:16 04/07/20 25 04/07/2025 CMP, serum or plasm a sodium, serum or plasma 137 mmol/ L low: 136mmo l/Lhig h: 145mmo l/L Not Available Not Available 04/07/2025 22:08:15 04/07/2004/07/2025 CMP, serum or plasm a potassium, serum or plasma 4.2 mmol/ L low: 3.5mmo l/Lhig h: 5.1mmo l/L Not Available Not Available 04/07/2025 22:08:15 04/07/2004/07/2025 CMP, serum or plasm a chloride, serum [...] 22:08:15 04/07/2004/07/2025 CMP, serum or plasm a glucose, qn [mass/volume ], serum or plasma 92 mg/dL low: 70mg/d Lhigh: 99mg/d L Not Available Not Available 04/07/2025 22:08:15 04/07/20 25 04/07/2025 CMP, serum or plasm a BUN (blood urea nitrogen), serum or plasma 12 mg/dL low: 8mg/dL high: 26mg/d L Not Available Not Available 04/07/2025 22:08:15 1204/07/2025 CMP, serum or plasm a creatinine, serum [...] 8g/dL Not Available Not Available 04/07/2025 22:08:15 04/07/2004/07/2025 CMP, serum or plasm a albumin, serum or plasma 4.5 g/dL low: 3.5g/d Lhigh: 5g/dL Not Available Not Available 04/07/2025 22:08:15 04/07/20 25 04/07/2025 CMP, serum or plasm a albumin/glob ulin, ratio, serum 1.3 low: 1high: 2.2 Not Available Not Available 04/07/2025 22:08:15 04/07/20 25 04/07/2025 CMP, serum or plasm a calcium, serum or plasma 9.1 mg/dL low: 8.7mg/ dLhigh : 10.5mg /dL Not Available Not Available 04/07/2025 22:08:15 04/07/20 25 04/07/2025 CMP, serum or plasm a bilirubin, total, serum or plasma 0.5 mg/dL low: 0.2mg/ dLhigh : 1.2mg/ dL Not Available Not Available 04/07/2025 22:08:15 04/07/20 25 04/07/2025 CMP, serum or plasm a AST/SGOT (aspartate aminotransfe rase), serum or plasma 23 U/L high: 43U/L Not Available Not Available 04/07/2025 22:08:15 04/07/20 25 04/07/2025 CMP, serum or plasm a ALT (alanine aminotransfe rase), serum or plasma 23 U/L high: 56U/L Not Available Not Available 04/07/2025 22:08:15 04/07/20 25 04/07/2025 CMP, serum or plasm a alkaline phosphatase, [...] race. Not Available Not Available 04/07/2025 22:08:15 04/07/2004/07/2025 CMP, serum or plasm a GFR, estimated [...] 22:08:15 04/07/2004/07/2025 CMP, serum or plasm a glomerular filtration [...] m. Calcu latio n based on the 2009 Chron ic Kidne y Disea se Epide [...] DO Not Attach Compendium, Do Not Delete/merge, [id number] 04/20/2025 08:50:48 04/17/20 elect rocar diogr am No observ ation record ed. [email or web address] Not Available 2024 13:45:17 Result Notes None recorded. Problems Name Problem SNOMED Code Status Onset Date Resolution Date Notes Provider Name and Address Organization Details Recorded Time Upper respirat ory infectio n 38096744 Completed 07/25/2016 James Muniz MD Attn: Accounting, [address] [place], [address], [facility] 7 17:30:21 Hemorrho ids 56280345 Completed 09/24/2018 James Muniz MD Attn: Accounting, [address] [place], [address], [place] [facility] 9 15:11:06 Morbid obesity 475002442 Completed 07/25/2016 James Muniz MD Attn: Accounting, [address] [place], [address], [place] [facility] 3 16:21:11 Fatigue 73203578 Completed 09/24/2018 James Muniz MD Attn: Accounting, [address] [place], [address], [place] [facility] 9 15:10:58 Sleep apnea 63472422 Completed 09/24/2018 James Muniz MD Attn: Accounting, [address] [place], [address], [place] [facility] 9 15:11:01 Tobacco user 215318474 Completed 07/25/2016 James Muniz MD Attn: Accounting, [address] [place], [address], [place] [facility] 7 17:30:18 Essentia l hyperten tiera 80188006 Active Gala Lockhart [place] null, [place] [facility] 0 14:16:45 Overweig ht 377176559 Completed 201609/24/2018 James Muniz MD Attn: Accounting, [address] [place], [address], [place] [facility] 9 15:10:55 Tobacco dependen ce syndrome 50673274 Active 2016 Gala Lockhart [place], [place] [facility] 0 14:16:45 Posterio r rhinorrh ea 14029955 Active 2017 Gala Lockhart [place] [facility] 0 14:16:45 Body mass index 30+ - obesity 013827811 Active 2017 Gala Lockhart [place] [facility] 0 14:16:45 Sleep pattern disturba nce 32741978 Completed 201809/24/2018 James Muniz MD Attn: Accounting, [address] [place], [address], [place] [facility] 9 15:10:39 Obstruct sydni sleep apnea syndrome 10067444 Active 2018 Gala Lockhart [place] [facility] 0 14:16:45 Hypercho lesterol emia 04040381 Active 2018 Gala Lockhart [place] [facility] 0 14:16:45 Gastroes ophageal reflux disease without esophagi tis 261883953 Active 2019 James Muniz MD Attn: Accounting, [address] [place], [place], [address] [place] [address], [place] [facility] 0 09:23:30 Seasonal allergic rhinitis 103844076 Active 2019 James Muniz MD Attn: Accounting, [address] [place], [place], [address] [place] [address], [place] [facility] 0 09:44:24 Anal warts 145044566 Active 2021 James Muniz MD Attn: Accounting, [address] [place], [place], [address] [place] [address], [place] [facility] 2 16:55:40 Obesity 870492819 Active 2021 James Muniz MD Attn: Accounting, [address] [place], [place], [address] [place] [address], [place] [facility] 2 14:18:41 Pure hypercho lesterol emia 237867315 Active 2021 James Muniz MD Attn: Accounting, [address] [place], [place], [address] [place] [address], [place] [facility] 2 10:07:02 Alcohol dependen ce 48766915 Active 2021 James Muniz MD Attn: Accounting, [address] [place], [place], [address] [place] [address], [place] [facility] 2 10:31:31 Right hemipare sis 268054475 Active 2021 James Muniz MD Attn: Accounting, [address] [place], [place], [address] [place] [address], [place] [facility] 2 10:34:51 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 959397562 Active 2021 James Muniz MD Attn: Accounting, [address] [place], [address], [place] [facility] 2 10:35:04 Osteoart hritis of right hip joint 10124478331 9107 Active 2022 James Muniz MD Attn: Accounting, [address] [facility], [place], [address], [place] [facility] 3 16:04:14 Paresis of right lower limb 57111821154 192455 Active 2022 James Muniz MD Attn: Accounting, [address] [facility], [place], [address], [place] [facility] 3 16:13:30 Morbid obesity 615969676 Active 2022 James Muniz MD Attn: Accounting, [address] [place], [address], [place] [facility] 3 16:21:11 Sinusiti s 55059831 Active 2024 OMID RAYA Attn: Accounting, [address] [place], [address], [place] [facility] 5 16:55:03 Problem Notes None recorded. Medical Equipment None Reported. Allergies Allergen ID Allergen Name Allergen Category Reaction Reaction Severity Criticality Documentation Date Start Date Code Code System Note Provider Name and Address Organization Details Recorded Time 044454 No known allergy (situatio n) Not available Not available Not available Not available 06/21/2023 54537 6003 SNOMED Avni Muniz MD Attn: Accountin g,[address] [place], [address], [place] [facility] 4 17:05:04 No [...] Updated DateTime 5 180.34 cm 39.5 kg/m2 374804. 64 g 73 /min 97 % 110/80 mm[Hg] Amber Whalen MA [facility] 5 13:39:26 Social History Question Answer Notes LastModified by Organizat ion Details LastModified Time Tobacco Smoking Status Current Some Day Smoker [place], [place] - [facility] 09/02/2020 15:01:22 Do You Have An [...] not available 09/02/2020 What is your occupation? [employer] Information not available 01/21/2024 Do you or have you ever used e-cigarettes or vape? Never used electronic cigarettes Information not available 01/06/2020 What is your exercise level? Occasional Information not available 09/02/2020 Mental Status Question Answer Note LastModified by Organizat ion Details LastModified Time Do you feel stressed (tense, restless, nervous, or anxious, or unable to sleep at night)? [id number] at work Information not available 09/02/2020 Family [...] (COVID-19) vaccine, UNSPECIFIED 1 completed Not Available [facility] 05/28/2023 22:35:09 Influenza, split virus, quadrivalent, preservative 8 completed Not Available [facility] 05/17/2019 02:50:29 Influenza, split virus, quadrivalent, preservative 9 completed Not Available [facility] 05/17/2019 02:43:07 Influenza, split virus, quadrivalent, preservative 2 completed James Muniz MD Attn: Accounting,[address] [place], [address], [facility] 04/17/2022 15:32:00 Tdap 4 completed Steven Cárdenas [facility] 08/06/2023 17:05:13 Past Encounters Encounter ID Performer Location Encounter Start Date Encounter Closed Date Diagnosis/Indication Diagnosis SNOMED-CT Code Diagnosis ICD10 Code Diagnosis IMO Codes Diagnosis Note [id number] Zarina Carrillo MD [facility] (Adult Med) [address] [place] [address] 03/24/2025 16:01:12 03/25/2025 12:09:52 Otitis externa 1983271 H60.8X2 3793052 keep ear dry [id number] Amos Jones MD [facility] [place] [facility] [address] [place] [address] 04/17/2025 13:30:38 04/20/2025 14:29:40 Obese class II 9031094962 85590 E66.812 E66.3 4669460539 Lifestyle modificati ons discussed. Essential hypertension 15165345 I10 76097 Currently maintained on lisinopril 40, HCTZ 25, [...] over 140/90) or if symptoms. Coronary arteriosclerosis 14999051 I25.118 I27.20 Z86.73 66637122 Maintained on aspirin 81 mg daily along [...] s in the interim discussed. Pulmonary hypertension 17322384 I27.20 4052 Echocardio gram 2023 with no bubble study. Recent LDCT chest with findings of cardiomega ly. With increasing exertional dyspnea, findings of cardiomega ly with history of CVA, obtain echocardio gram with bubble study to assess for structural / valvular heart disease and rule out interatria l shunting. Smoker 54338517 F17.200 410740 Discussed cardiovasc ular risks of ongoing nicotine [...] On behalf of the Cardiology Services at [facility] , we appreciate the opportunit y to participat e in the care of your patient. Please feel free to reach out to us for any questions regarding your patient's cardiac care. Amos Jones MD, [facility] , Cardiology Ph: [phone]: [phone] Health Concerns Section Related Observation LastModified by Organization Detai ls LastModified Time None Recorded Concern Status LastModified by Organization Details LastModified Time None Recorded Payers Encounter Date Sequence Insurance Name Policy Number Policy Johns Covered Member ID Johns Member ID Guarantor Name 04/17/2025 2 *SELF PAY* Sirena Valenzuela 04/17/2025 1 [facility] - EXCHANGE PLAN - [place] (HMO) ILONEX Ramon Valenzuela [id number] Ramon Valenzuela Notes Date Note Type Note Provider Name and Address Organization Details Recorded Time 04/17/2025 text/html ROS as noted in the [...] episodes. Amos Jones MD Attn: Accounting[address] [facility], [place], [address], [facility] 04/20/2025 09:32:14
--- OUTSIDE RECORDS SUMMARY | 2025-04-21 09:29 | XMS_ITS | Continuity of Care Document ---
Author Organization [facility] (Adult Med) Address [address] [place] [address] Care Team Providers Care Motion Designer Name Role Phone DARLIN DEJESUS Sleep Medicine [...] available Not available Lab None recorded. Referral neurologi luisa surgeon referral 2024 025 [email or web address] [facility] - Neurosurgery, [address] [facility], [facility] [address], [address], 04/10/2025 08:09:22 Procedures None recorded. Surgeries None recorded. Imaging None recorded. Medication Orders cyclobenz aprine 5 mg tablet 2024 025 [id number], [address] [place], [place], [phone], 03/25/2025 05:01:47 Patient TargetsNo targets recorded. Patient Instructions Encounter Date Encounter Id Patient Instructions Last Modified By Organization Details Last Modified Time 03/03/2025 [id number] sciatica: exercises [email or web address] Not available 03/03/2025 16:39:51 low back pain: exercises Not available 03/03/2025 16:39:51 back stretches: exercises [email or web address] Not available 03/03/2025 16:39:51 Plan of care [...] Prevnar 20: Due at 65. - Tdap/Td ([id number]): 08/06/23 - Zoster (>60):Due at 60. - COVID-19: 09/03/20 - AAA screening (65-75): Due at 65. - Prostate ca screening (>50 or >45 if AA, +FH; d/w patient): 0.5 (12/01/24) -Labs ordered this visit: n/a Not available 03/03/2025 16:44:29 Reason for Referral Neurological Surgeon Referra l for Intracranial aneurysm Referring Physician: Bernadine Anton, Family Medicine, Encounter Date: 03/03/2025 Results Created Date Observation Date Name Description Value Unit Range Abnormal Flag Note LastModifiedBy Organization Detail LastModifiedTime 04/17/2004/17/2025 oliva cox am No observ ation record ed. FELICIA In-Office Order Internal Use Only DO Not Attach Compendium DO Not Attach Compendium, Do Not Delete/merge, [id number] 04/20/2025 08:50:48 04/17/20 oliva cox am No observ ation record ed. [email or web address] Not Available 2024 13:45:17 Result Notes None recorded. Problems Name Problem SNOMED Code Status Onset Date Resolution Date Notes Provider Name and Address Organization Details Recorded Time Upper respirat ory infectio n [id number] Completed 07/25/2016 James Muniz MD Attn: Accounting, [address] [facility], [place], [address], [place] - [facility] 7 17:30:21 Hemorrho ids 53758630 Completed 09/24/2018 James Muniz MD Attn: Accounting, [address] [facility], [place], [address], [place] [facility] 9 15:11:06 Morbid obesity 383153172 Completed 07/25/2016 James Muniz MD Attn: Accounting, [address] [place], [address], [facility] - [facility] 3 16:21:11 Fatigue 18867305 Completed 09/24/2018 James Muniz MD Attn: Accounting, [address] [place], [address], [facility] - [facility] 9 15:10:58 Sleep apnea 21065359 Completed 09/24/2018 James Muniz MD Attn: Accounting, [address] [place], [address], [facility] - [facility] 9 15:11:01 Tobacco user 885445329 Completed 07/25/2016 James Muniz MD Attn: Accounting, [address] [place], [address], [place] [facility] 7 17:30:18 [facility]ia l hyperten tiera 48440655 Active Gala Lockhart [place] null, [place] [facility] 0 14:16:45 Overweig ht 563762748 Completed 201609/24/2018 James Muniz MD Attn: Accounting, [address] [place], [address], [place] - [facility] 9 15:10:55 Tobacco dependen ce syndrome 52516063 Active 2016 Gala Lockhart [place], [place] [facility] 0 14:16:45 Posterio r rhinorrh ea 37798226 Active 2017 Gala Lockhart [place] [facility] 0 14:16:45 Body mass index 30+ - obesity 127912782 Active 2017 Gala Lockhart [place] [facility] 0 14:16:45 Sleep pattern disturba nce 27275900 Completed 201809/24/2018 James Muniz MD Attn: Accounting, [address] [place], [place], [address] [place] [address], [place] [facility] 9 15:10:39 Obstruct sydni sleep apnea syndrome 95298601 Active 2018 Gala Lockhart [place], [place] [facility] 0 14:16:45 Hypercho lesterol emia 15029710 Active 2018 Gala Lockhart [place] [facility] 0 14:16:45 Gastroes ophageal reflux disease without esophagi tis 534505785 Active 2019 James Muniz MD Attn: Accounting, [address] [place], [place], [address] [place] [address], [place] [facility] 0 09:23:30 Seasonal allergic rhinitis 081860417 Active 2019 James Muniz MD Attn: Accounting, [address] [place], [place], [address] [place] [address], [place] [facility] 0 09:44:24 Anal warts 844173417 Active 2021 James Muniz MD Attn: Accounting, [address] [place], [place], [address] [place] [address], [place] [facility] 2 16:55:40 Obesity 982428933 Active 2021 James Muniz MD Attn: Accounting, [address] [facility], [place], [address], [place] [facility] 2 14:18:41 Pure hypercho lesterol emia 806977048 Active 2021 James Muniz MD Attn: Accounting, [address] [facility], [place], [address], [place] [facility] 2 10:07:02 Alcohol dependen ce 24835909 Active 2021 James Muniz MD Attn: Accounting, [address] [facility], [place], [address], [place] [facility] 2 10:31:31 Right hemipare sis 194536941 Active 2021 James Muniz MD Attn: Accounting, [address] [facility], [place], [address], [place] [facility] 2 10:34:51 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 363814898 Active 2021 James Muniz MD Attn: Accounting, [address] [facility], [place], [address], [place] [facility] 2 10:35:04 Osteoart hritis of right hip joint 96733654299 9107 Active 2022 James Muniz MD Attn: Accounting, [address] [facility], [place], [address], [place] [facility] 3 16:04:14 Paresis of right lower limb 96841061627 372958 Active 2022 James Muniz MD Attn: Accounting, [address] [facility], [place], [address], [place] [facility] 3 16:13:30 Morbid obesity 187425440 Active 2022 James Muniz MD Attn: Accounting, [address] [facility], [place], [address], [place] [facility] 3 16:21:11 Sinusiti s 86579164 Active 2024 OMID RAYA Attn: Carissa, [address] [facility], [place], [address], [facility] 5 16:55:03 Problem Notes None recorded. Medical Equipment None Reported. Allergies Allergen ID Allergen Name Allergen Category Reaction Reaction Severity Criticality Documentation Date Start Date Code Code System Note Provider Name and Address Organization Details Recorded Time 747380 No known allergy (situatio n) Not available Not available Not available Not available 06/21/2023 92898 6003 SNOMED Avni Muniz MD Attn: Ernie mark,[address] [facility], [place], [address], [facility] 4 17:05:04 No known drug allergies Medications [...] Updated DateTime 5 180.34 cm 39.3 kg/m2 951533. 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 [employer]pc Information not available 01/21/2024 Do you or have you ever used e-cigarettes or vape? Never used electronic cigarettes Information not available 01/06/2020 What is your exercise level? Occasional Information not available 09/02/2020 Mental Status Question Answer Note LastModified by Organizat ion Details LastModified Time Do you feel stressed (tense, restless, nervous, or anxious, or unable to sleep at night)? [id number] at work Information not available 09/02/2020 Family [...] UNSPECIFIED 1 completed Not Available [facility] 05/28/2023 22:35:09 Influenza, split virus, quadrivalent, preservative 8 completed Not Available [facility] 05/17/2019 02:50:29 Influenza, split virus, quadrivalent, preservative 9 completed Not Available [facility] 05/17/2019 02:43:07 Influenza, split virus, quadrivalent, preservative 2 completed James Muniz MD Attn: Accounting,[address] [place], [address], [facility] 04/17/2022 15:32:00 Tdap 4 completed [facility] 08/06/2023 17:05:13 Past Encounters Encounter ID Performer Location Encounter Start Date Encounter Closed Date Diagnosis/Indication Diagnosis SNOMED-CT Code Diagnosis ICD10 Code Diagnosis IMO Codes Diagnosis Note [id number] MD Sonya Lance (Adult Med) [address] [place] [address] 02/24/2025 15:54:48 02/25/2025 13:30:58 Acute left otitis media 330353522 H66.92 [id number] follow up in a month [id number] MD Sonya Eddy (Adult Med) [address] [place] [address] 03/03/2025 15:55:32 03/05/2025 12:06:34 Essential hypertension 79882425 I10 -Controlle d-BP today in clinic: 139/84mmHg [...] up in 6 month Low back pain 552761103 M54.50 630955 -Denies having any acute trauma-Den ies any [...] re instructio ns provided. Intracranial aneurysm 12 0137250 I67.1 140069 -Carotid CTA (01/03/24): no carotid or vertebral [...] insurance. New referral placed.-ER precaution s advised Health Concerns Section Related Observation LastModified by Organization Detai ls LastModified Time None Recorded Concern Status LastModified by Organization Details LastModified Time None Recorded Payers Encounter Date Sequence Insurance Name Policy Number Policy Johns Covered Member ID Johns Member ID Guarantor Name 03/03/2025 2 *SELF PAY* Sirena Valenzuela 03/03/2025 1 [facility] [place] PL[place] Ramon Valenzuela [id number] Ramon Valenzuela Notes Date Note Type Note Provider Name and Address Organization Details Recorded Time 03/03/2025 text/html Patient is a 59 year [...] 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 OMID RAYA Attn: Accounting,[address] [place], [address], [place] [facility] 03/03/2025 16:48:04
[2025-04-21 10:09] LABS: EDCOVIDSCREEN Negative (Negative); EDINFLUASCREEN Negative (Negative); EDINFLUBSCREEN Negative (Negative)
--- NOTE | 2025-04-21 10:12 | ED.URI ---
HPI - URI/Sore Throat General Chief Complaint: Upper Respiratory Infection Stated Complaint: cold symptoms/chest congestion Time Seen by Provider: 04/21/25 10:00 Source: patient and RN notes reviewed Mode of arrival: ambulatory Limitations: no limitations History of Present Illness HPI Narrative: 59-year-old male patient presents Express Care complaining of upper respiratory symptoms for 3 days. Patient reports body aches, chills, cough, chest congestion, congestion. Patient denies any other respiratory symptoms. Patient has any chest pain, difficulty breathing, nausea vomiting, diarrhea, or any other symptoms. Patient reports having a productive cough and mucopurulent sputum production. Patient is a current smoker, he denies any history of COPD. Patient recently admitted to the hospital for hypertensive crisis is currently following with cardiology. Related Data Home Medications ?Medication ?Instructions ?Recorded ?Confirmed ?Last Taken ?Type atorvastatin 80 mg tablet mg 04/21/25 Unknown History clonidine HCl 0.1 mg tablet mg 04/21/25 Unknown History hydrochlorothiazide 25 mg tablet mg 04/21/25 Unknown History lisinopril 40 mg tablet mg 04/21/25 Unknown History metoprolol succinate 100 mg mg PO 04/21/25 Unknown History tablet,extended release 24 hr Allergies Allergy/AdvReac Type Severity Reaction Status Date / Time No Known Allergies Allergy Verified 04/21/25 09:31 Review of Systems Review of Systems: CONSTITUTIONAL: Denies fever, or sweats. Positive body aches and chills. EYES: Denies visual changes, redness, or discharge. ENT: Denies rhinorrhea, sore throat, or otalgia. Positive for congestion. CARDIOVASCULAR: Denies chest pain, palpitations, or edema. RESPIRATORY: Positive for cough. Negative for dyspnea. GASTROINTESTINAL: Denies abdominal pain, nausea, vomiting, or diarrhea. GENITOURINARY: Denies dysuria or hematuria. SKIN: Denies rash or itching. MUSCULOSKELETAL: Denies back pain, joint pain, or myalgia. NEUROLOGIC: Denies headache, numbness, or weakness. PSYCHIATRIC: Denies anxiety or depression. All other systems reviewed are negative, except as documented in HPI. PMFSH Comments At the time of my signature, I reviewed and agree with the nursing past medical, surgical, social, and family history. There is no relevant family history pertinent to the patient complaint. Exam Narrative: GENERAL: This is a well-nourished, well-developed adult, in no apparent distress. They are non ill-appearing, nontoxic appearing. HEAD: normocephalic, atraumatic. EYES: Sclera clear/white. Conjunctiva normal. Vision is grossly intact. Extraocular movements intact EARS: External ears normal, auditory canals clear and without drainage, TMs normal without perforation. Hearing grossly intact. NOSE: External nose normal with no obvious nasal discharge, nasal turbinates erythematous, no rhinorrhea. THROAT: Mucous membranes moist, posterior pharynx erythematous. PND present. Uvula midline. NECK: Neck supple, non-tender without lymphadenopathy, masses or thyromegaly. CARDIOVASCULAR: Regular rate and rhythm without murmurs, gallops, or rubs. RESPIRATORY: Expiratory wheezes heard throughout.. Breath sounds equal bilaterally. No rales, or rhonchi. Respiratory rate normal, respiratory effort nonlabored, no respiratory distress SKIN: warm, Dry, intact with no suspicious lesions or rash, good texture and turgor. NEURO: awake, alert, and oriented to person, place and time. There were no obvious focal neurologic abnormalities. EXTREMITIES: No joint tenderness, effusion, or edema noted. BACK: Nontender without deformity. No CVA tenderness. Course Course Level of Care: Express Care Visit Vital Signs Vital signs: Vital Signs Temperature 98.4 F 04/21/25 09:20 Pulse Rate 72 04/21/25 09:20 Respiratory Rate 16 04/21/25 09:20 Blood Pressure 110/69 04/21/25 09:20 Pulse Oximetry 98 04/21/25 09:20 Oxygen Delivery Room Air 04/21/25 09:20 Temperature 98.4 F 04/21/25 09:20 Pulse Rate 72 04/21/25 09:20 Respiratory Rate 16 04/21/25 09:20 Blood Pressure 110/69 04/21/25 09:20 Pulse Oximetry 98 04/21/25 09:20 Oxygen Delivery Room Air 04/21/25 09:20 [facility] Narrative Medical decision making narrative: Rapid COVID and flu negative. Patient current smoker. Patient denies any COPD history but does not regularly see a doctor, given his symptoms, wheezing increased mucopurulent sputum production will treat him with prednisone and azithromycin. Will also send him with benzonatate tablets for cough. Patient nontoxic appearing, no apparent distress, respiratory distress. Discussed physical exam findings. Advised supportive measures and signs/symptoms to go to the ER. Pt is appropriate for outpt treatment and f/u. Differential Diagnosis Differential Diagnosis: Differential diagnostic considerations for upper respiratory infection include upper respiratory infection, croup, otitis media, sinusitis, viral infection, bronchitis, influenza, pharyngitis, strep, uvulitis, chronic bronchitis, COPD exacerbation. Lab Data MDM Lab Attestation statement: I personally reviewed the patient's lab results. Labs: Lab Results 04/21/25 Range/Units 10:08 POC Influenza A Ag Negative (Negative) POC Influenza B Ag Negative (Negative) POC SARS CoV-2 Ag Negative (Negative) Critical Care Time Critical Care Time Critical Care Time: No Discharge Plan Discharge Clinical Impression: Purulent chronic bronchitis Patient Disposition: Home Condition: Stable Instructions: Antibiotic Form, Acute Bronchitis (ED) Additional Instructions: Acute bronchitis can be contagious because it is usually caused by infection with a virus or bacteria. It is usually for a few days but you can be contagious for up to one week. Avoid crowds until you do not have a fever and symptoms are improved Take prednisone as directed. Take azithromycin as directed. Use your inhaler at home as directed for wheezing or shortness of breath. Use of benzonatate tablets as needed for cough. Recommend Flonase spray and Zyrtec (or Claritin/Emilie) Tylenol or Motrin as needed for pain or fevers. Follow instructions on the bottle. Symptomatic treatment includes: rest, fluids, and increase humidity of the air at home. Follow up with your primary care provider 3-5 days. Go to the ER for worsening symptoms, chest pains, difficulty breathing, shortness of breath, vomiting, weakness, confusion, or any serious concerns Patient Language: Korean Prescriptions: New azithromycin 250 mg tablet See Rx Instructions .ROUTE .COMPLEX Qty: 6 0RF Rx Instructions: For 250 mg dose pack: take 500 mg today (day 1), then 250 mg for 4 days (days 2-5) benzonatate 200 mg capsule 200 mg PO BID PRN (Reason: cough) Qty: 20 0RF prednisone 20 mg tablet 40 mg PO DAILY 5 Days Qty: 10 0RF No Action atorvastatin 80 mg tablet clonidine HCl 0.1 mg tablet metoprolol succinate 100 mg tablet extended release 24 hr PO hydrochlorothiazide 25 mg tablet lisinopril 40 mg tablet Follow-up/Referrals: Sloane,Bernadine Ennis APRN [Primary Care Provider, Unknown] Time of Disposition: 10:08
== END 2025-04-21 10:14 | disposition home or self-care (01) ==
PROVIDERS: PCP Nurse Practitioner Family
DX: J41.1 Mucopurulent chronic bronchitis (principal); Z20.822 Contact with and (suspected) exposure to COVID-19; I10 Essential (primary) hypertension
CPT/HCPCS: 87426; 87804; 99203; G0463